=== PATIENT | female | born 1985 | race Caucasian/White ===

== ENCOUNTER → 2020-08-26 15:10 | Outpatient (CLI) | payer OTHER, MEDICAID, SELFPAY ==
--- NOTE | ~2020-08-26 | US_ITS ---
EXAMINATION: US OB transvaginal DATE: 08/26/2020 15:37 INDICATION: Subchorionic hematoma. First trimester. Spotting. TECHNIQUE: Real-time transvaginal pelvic ultrasound was performed. COMPARISON: None. FINDINGS: The uterus measures 9.8 x 6.0 x 6.3 cm. There is a fluid collection in the endometrial complex with m louis diameter of 1.3 cm, which may be a gestational sac with estimated gestational age of 5 weeks and 4 days +/- 4 days and estimated date of delivery of 04/24/2021. No yolk sac or pole is identifie d. The right ovary measures 3.8 x 2.3 x 1.7 cm. The left ovary measures 1.6 x 0.9 x 0.7 cm. There is no free fluid in the pelvis. IMPRESSION: 1. Fluid collection in the endometrial complex that may be a gestational sac. Spontaneous a nd ectopic are not excluded. Serial beta-hCGs are recommended. Reviewed, dictated and finalized at location A. ING MACHINE OPERATOR IMPRESSION: 1. Fluid collection in the endometrial complex that may be a gestational sac. Spontaneous and ectopic are not excluded. Serial beta-hCGs a re recommended.
== END ==
PROVIDERS: Visit Provider Obstetrics & Gynecology Gynecology
DX: O26.851 Spotting complicating pregnancy, first trimester (principal); Z3A.00 Weeks of gestation of pregnancy not specified
CPT/HCPCS: 76817

== ENCOUNTER 2020-10-06 10:39 | Outpatient (RCR) | payer OTHER, MEDICAID, SELFPAY ==
[2020-08-30] MEDS: RHO(D) IMMUNE GLOBULIN 300 MCG SYRINGE IM (08:40)
[2020-09-09 08:25] LABS: Beta HCG Quantitative 178.68 mIU/ML
[2020-09-23 08:55] LABS: Beta HCG Quantitative 8.37 mIU/ML
[2020-10-06 11:52] LABS: Beta HCG Quantitative < 2.39 mIU/ML
== END 2020-11-26 23:59 | disposition home or self-care (01) ==
LOC: ANHLAB 10:39
PROVIDERS: PCP Family Medicine; Visit Provider Obstetrics & Gynecology Gynecology
DX: Z29.13 Encounter for prophylactic Rho(D) immune globulin (principal); O36.0990 Maternal care for other rhesus isoimmunization, unspecified trimester, not applicable or unspecified; O02.1 Missed abortion; Z3A.00 Weeks of gestation of pregnancy not specified
CPT/HCPCS: 36415; 84702; 85461; 90384; 96372; J2790

== ENCOUNTER 2021-01-03 08:07 | Outpatient (RCR) | payer OTHER, MEDICAID, SELFPAY | END 2021-04-01 23:59 | disposition home or self-care (01) | LOC: ANHLAB 08:07 | PROVIDERS: PCP Family Medicine; Visit Provider Obstetrics & Gynecology Gynecology | DX: O26.21 Pregnancy care for patient with recurrent pregnancy loss, first trimester (principal); Z3A.00 Weeks of gestation of pregnancy not specified | CPT/HCPCS: 36415; 84702 ==

== ENCOUNTER → 2021-01-15 13:42 | Outpatient (CLI) | payer OTHER, MEDICAID, SELFPAY ==
--- NOTE | ~2021-01-15 | US_ITS ---
EXAMINATION: US OB transvaginal EXAM DATE: 01/15/2021 14:01 INDICATION: , history of subarachnoid bleed. 1st trimester. TECHNIQUE: Pelvic obstetrical transvaginal sonogram was performed by a technologist. [facility] grayscale and Doppler images available for interpretation. There are no earlier studies of this gestation for comparison. FINDINGS: Uterus measures 10.1 x 6.3 x 6.9 cm. There is intrauterine gestation sac. pole with heart rate confirmed at 130 beats per minute. The 5 mm crown-rump length corresponds to estimated g estational age by ultrasound of 6 weeks 1 day, estimated date of confinement 09/09/2021. Yolk sac is identified. There is no sonographic evidence of subchorionic hemorrhage. Ovaries are morphologica lly normal, the right side likely has the corpus luteal cyst. IMPRESSION: Early live intrauterine gestation, age by CRL 6 weeks 1 day. Reviewed, dictated and finalized at location A.
== END ==
PROVIDERS: Visit Provider Obstetrics & Gynecology Gynecology
DX: O26.21 Pregnancy care for patient with recurrent pregnancy loss, first trimester (principal); Z3A.01 Less than 8 weeks gestation of pregnancy
CPT/HCPCS: 76817

== ENCOUNTER 2021-02-26 12:16 | Outpatient (CLI) | payer OTHER, MEDICAID, SELFPAY ==
[2021-02-26 13:05] LABS: Basophils Percent Auto 0.2 % (0.2-1.2); Eosinophils Absolute Auto 0.1 K/mm3 (0-0.3); Eosinophils Percent Auto 1.6 % (0-4.4); Hematocrit 36.5 % (37.0-47.0); Hemoglobin 12.2 g/dL (12.0-15.0); Immature Granulocyte Absolute 0.05 K/mm3 (0.00-0.031); Immature Granulocyte Percent A 0.6 % (0-0.5); Lymphocytes Absolute Auto 1.92 K/mm3 (0.9-3.2); Lymphocytes Percent Auto 21.7 % (18.3-44.2); Mean Corpuscular HGB Conc 33.4 g/dl (32-36); Mean Corpuscular Hemoglobin 29.5 pg (26-34); Mean Corpuscular Volume 88.2 fl (80-100); Mean Platelet Volume 9.4 fl (7.4-10.4); Monocytes Absolute Auto 0.7 K/mm3 (0.1-0.6); Monocytes Percent Auto 7.7 % (2.6-8.5); Neutrophils Percent Auto 68.2 % (45.5-73.1); Platelet Count Result 269 k/mm3 (150-375); Red Blood Count 4.14 M/mm3 (4.2-5.4); Red Cell Distribution Width 12.2 % (11.5-14.5); White Blood Count 8.8 K/mm3 (4.5-10.0)
[2021-02-26 13:28] LABS: Hemoglobin A1C 5.1 % (<5.7)
[2021-02-26 13:54] LABS: HIV 1/2 Ab P24 Ag Result Negative (Negative)
[2021-02-26 13:59] LABS: Vitamin D 25 Hydroxy 25.6 ng/mL
[2021-02-26 21:53] LABS: Rubella IgG Antibody 33.8 IU/ML
[2021-02-26 21:56] LABS: Hepatitis B Surface Antigen 0.07 S/C; Hepatitis B Surface Antigen Negative (Negative)
[2021-02-27 08:30] LABS: Rapid Plasma Reagin Non-Reactive (NonReactive)
== END 2021-02-26 12:17 | disposition home or self-care (01) ==
PROVIDERS: PCP Family Medicine; Visit Provider Obstetrics & Gynecology Gynecology
DX: O09.529 Supervision of elderly multigravida, unspecified trimester (principal); Z3A.00 Weeks of gestation of pregnancy not specified
CPT/HCPCS: 36415; 82306; 83036; 85025; 86592; 86703; 86762; 86850; 87340; G0432

== ENCOUNTER 2021-03-31 09:10 | Outpatient (CLI) | payer OTHER, MEDICAID, SELFPAY ==
[2021-03-31 09:31] LABS: Collection Time Urine 24 HOURS
[2021-03-31 09:47] LABS: Estimated Glomerular Filt Rate > 60
[2021-03-31 10:30] LABS: Total Volume 24 Hour Urine 1300 ml
[2021-03-31 10:39] LABS: Creatinine Urine 99.6 mg/dL; Patient Weight 185 Lbs; Total Protein Urine 24 Hr 156 mg/24hr (28-141); Total Protein Urine Random 12 mg/dL
[2021-03-31 11:01] LABS: Creatinine Clearance Urine 166.9 ml/min (75-125)
== END 2021-03-31 09:11 | disposition home or self-care (01) ==
PROVIDERS: PCP Family Medicine; Visit Provider Obstetrics & Gynecology Gynecology
DX: Z34.92 Encounter for supervision of normal pregnancy, unspecified, second trimester (principal); Z3A.00 Weeks of gestation of pregnancy not specified
CPT/HCPCS: 36415; 81050; 82565; 82575; 84156

== ENCOUNTER 2021-06-18 16:11 | Outpatient (CLI) | payer BC, MEDICAID, SELFPAY ==
[2021-06-18 17:54] LABS: Hematocrit 31.9 % (37.0-47.0); Hemoglobin 10.8 g/dL (12.0-15.0)
[2021-06-18 18:12] LABS: Glucose 1 Hour PP 50gm Dose 101 mg/dL
[2021-06-18 18:52] LABS: HIV 1/2 Ab P24 Ag Result Negative (Negative)
[2021-06-18 21:36] LABS: Vitamin D 25 Hydroxy 26.6 ng/mL
== END 2021-06-18 16:12 | disposition home or self-care (01) ==
LOC: ANHLAB 16:17
PROVIDERS: PCP Family Medicine; Visit Provider Obstetrics & Gynecology Gynecology
DX: Z34.93 Encounter for supervision of normal pregnancy, unspecified, third trimester (principal)
CPT/HCPCS: 36415; 82306; 82947; 85014; 85018; 86703; G0432

== ENCOUNTER 2021-06-21 08:00 | Outpatient (RCR) | payer BC, MEDICAID, SELFPAY ==
[2021-06-21] MEDS: RHO(D) IMMUNE GLOBULIN 300 MCG/2 ML SYRINGE IM (14:37)
== END 2021-09-17 23:59 | disposition home or self-care (01) ==
LOC: ANHLAB 08:00
PROVIDERS: PCP Family Medicine; Visit Provider Obstetrics & Gynecology Gynecology
DX: Z29.13 Encounter for prophylactic Rho(D) immune globulin (principal); O36.0190 Maternal care for anti-D [Rh] antibodies, unspecified trimester, not applicable or unspecified; Z3A.00 Weeks of gestation of pregnancy not specified
CPT/HCPCS: 36415; 85461; 90384; 96372; J2790

== ENCOUNTER 2021-08-03 11:23 | Outpatient (CLI) | payer BC, MEDICAID, SELFPAY ==
[2021-08-03 12:09] LABS: Basophils Percent Auto 0.3 % (0.2-1.2); Eosinophils Absolute Auto 0.1 K/mm3 (0-0.3); Hematocrit 33.1 % (37.0-47.0); Hemoglobin 11.4 g/dL (12.0-15.0); Immature Granulocyte Absolute 0.06 K/mm3 (0.00-0.031); Immature Granulocyte Percent A 0.6 % (0-0.5); Lymphocytes Absolute Auto 1.86 K/mm3 (0.9-3.2); Lymphocytes Percent Auto 17.4 % (18.3-44.2); Mean Corpuscular HGB Conc 34.4 g/dl (32-36); Mean Corpuscular Hemoglobin 31.6 pg (26-34); Mean Corpuscular Volume 91.7 fl (80-100); Monocytes Absolute Auto 0.8 K/mm3 (0.1-0.6); Neutrophils Absolute Auto 7.9 K/mm3 (1.3-6.7); Neutrophils Percent Auto 73.7 % (45.5-73.1); Platelet Count Result 195 k/mm3 (150-375); Red Blood Count 3.61 M/mm3 (4.2-5.4); Red Cell Distribution Width 13.4 % (11.5-14.5); White Blood Count 10.7 K/mm3 (4.5-10.0)
[2021-08-03 13:15] LABS: Alanine Aminotransferase 12 U/L (4-35); Albumin Level 3.7 g/dL (3.5-5.1); Alkaline Phosphatase 131 U/L (38-126); Anion Gap 7 mmol/L (8-16); Aspartate Amino Transferase 18 U/L (14-36); Bilirubin,Total 0.5 mg/dL (0.2-1.3); Blood Urea Nitrogen 8 mg/dL (7-17); Calcium 8.6 mg/dL (8.4-10.2); Carbon Dioxide 20 mmol/L (22-30); Chloride 106 mmol/L (98-107); Estimated Glomerular Filt Rate > 60; Glucose 97 mg/dL (65-110); Lactate Dehydrogenase 411 U/L (313-618); Potassium 3.7 mmol/L (3.4-5.0); Sodium 133 mmol/L (137-145); Uric Acid 3.8 mg/dL (2.5-7.5)
== END 2021-08-03 11:24 | disposition home or self-care (01) ==
PROVIDERS: PCP Family Medicine; Visit Provider Obstetrics & Gynecology Gynecology
DX: Z34.93 Encounter for supervision of normal pregnancy, unspecified, third trimester (principal); Z3A.00 Weeks of gestation of pregnancy not specified
CPT/HCPCS: 36415; 80053; 83615; 84550; 85025

== ENCOUNTER 2021-08-06 13:33 | Outpatient (CLI) | payer BC, MEDICAID, SELFPAY ==
[2021-08-06] VITALS (10 sets, daily range): BP systolic 130–143; BP diastolic 71–83; PULSE 75–94; BMI 34.0
[2021-08-06 14:42] LABS: Basophils Percent Auto 0.2 % (0.2-1.2); Eosinophils Absolute Auto 0.1 K/mm3 (0-0.3); Eosinophils Percent Auto 0.9 % (0-4.4); Hematocrit 33.6 % (37.0-47.0); Hemoglobin 11.3 g/dL (12.0-15.0); Immature Granulocyte Absolute 0.05 K/mm3 (0.00-0.031); Immature Granulocyte Percent A 0.5 % (0-0.5); Lymphocytes Absolute Auto 1.85 K/mm3 (0.9-3.2); Lymphocytes Percent Auto 17.4 % (18.3-44.2); Mean Corpuscular HGB Conc 33.6 g/dl (32-36); Mean Corpuscular Hemoglobin 31.5 pg (26-34); Mean Corpuscular Volume 93.6 fl (80-100); Monocytes Absolute Auto 0.8 K/mm3 (0.1-0.6); Monocytes Percent Auto 7.9 % (2.6-8.5); Neutrophils Absolute Auto 7.8 K/mm3 (1.3-6.7); Neutrophils Percent Auto 73.1 % (45.5-73.1); Platelet Count Result 181 k/mm3 (150-375); Red Blood Count 3.59 M/mm3 (4.2-5.4); Red Cell Distribution Width 13.5 % (11.5-14.5); White Blood Count 10.6 K/mm3 (4.5-10.0)
[2021-08-06 14:53] LABS: Alanine Aminotransferase 12 U/L (4-35); Albumin Level 3.5 g/dL (3.5-5.1); Alkaline Phosphatase 136 U/L (38-126); Anion Gap 8 mmol/L (8-16); Aspartate Amino Transferase 19 U/L (14-36); Bilirubin,Total 0.7 mg/dL (0.2-1.3); Blood Urea Nitrogen 7 mg/dL (7-17); Calcium 8.8 mg/dL (8.4-10.2); Carbon Dioxide 22 mmol/L (22-30); Chloride 105 mmol/L (98-107); Estimated Glomerular Filt Rate > 60; Glucose 94 mg/dL (65-110); Potassium 3.6 mmol/L (3.4-5.0); Sodium 135 mmol/L (137-145); Uric Acid 4.5 mg/dL (2.5-7.5)
[2021-08-06 14:58] LABS: Add Urine Microscopic? YES; Appearance Urine Cloudy (Clear); Bilirubin Urine Negative (Negative); Blood Urine Negative (Negative); Color Urine Yellow (Yellow); Glucose Urine UA Negative (Negative); Ketones Urine Negative (Negative); Leukocyte Esterase Ur Trace LEU/UL (Negative); Mucus Urine Rare /lpf; Nitrate Urine Negative (Negative); Protein Urine Negative (Negative); Specific Grav Ur 1.013 (1.001-1.035); Squamous Epithelial Cell Urine Few /hpf (Few); Urobilinogen Urine Negative mg/dL (<2.0); WBC Urine 0-3 /hpf
[2021-08-06 15:07] LABS: Creatinine Urine 78.7 mg/dL; Total Protein Urine Random 10 mg/dL; Ur Ttl Prot Creatinine Ratio 0.13 mg/mg (0-0.20)
--- NOTE | 2021-08-06 15:32 | PC.NURSE ---
Dr. Benson informed of lab results, BP's, reactive NST. Order received for discharge. To encourage pt to do more resting at home.
== END 2021-08-06 15:51 | disposition home or self-care (01) ==
LOC: ANHOBOP 13:40 → ANHOBPP 13:41
PROVIDERS: PCP Family Medicine; Visit Provider Obstetrics & Gynecology Gynecology
DX: O13.9 Gestational [pregnancy-induced] hypertension without significant proteinuria, unspecified trimester (principal); Z3A.00 Weeks of gestation of pregnancy not specified
CPT/HCPCS: 36415; 59025; 80053; 81001; 82570; 84156; 84550; 85025; 99199

== ENCOUNTER 2021-08-07 15:00 | Outpatient (NON) | payer BC, MEDICAID, SELFPAY ==
[2021-08-07 15:15] VITALS: BMI 34.0
[2021-08-07 15:45] LABS: Total Volume 24 Hour Urine 1100 ml
[2021-08-07 15:59] LABS: Total Protein Urine 24 Hr 154 mg/24hr (28-141); Total Protein Urine Random 14 mg/dL
[2021-08-07 16:00] LABS: Creatinine 24 Hour Urine 1.3 gm/24 (0.8-1.8); Creatinine Urine 122.9 mg/dL
== END 2021-08-07 15:01 | disposition home or self-care (01) ==
LOC: ANHOBOP 15:11
PROVIDERS: PCP Family Medicine; Visit Provider Obstetrics & Gynecology Gynecology
DX: O13.9 Gestational [pregnancy-induced] hypertension without significant proteinuria, unspecified trimester (principal); Z3A.00 Weeks of gestation of pregnancy not specified
CPT/HCPCS: 81050; 82570; 84156

== ENCOUNTER → 2021-08-10 10:32 | Outpatient (CLI) | payer BC, MEDICAID, SELFPAY ==
--- NOTE | ~2021-08-10 | US_ITS ---
EXAMINATION: US OB BPP wo non-stress DATE: 08/10/2021 11:28 INDICATION: -induced hypertension, third trimester TECHNIQUE: Real-time pelvic ultrasound was performed. The interpreting radiologist was not present fo r the study. COMPARISON: None. FINDINGS: There is a single living fetus in vertex presentation. The placenta is fundal. heart rate is 12 4 beats per minute (bpm). The amniotic fluid index is 10.5 cm which is normal. Biophysical profile performed by the technologist: breathing (30 sec sustained breathing in 30 minutes): 2 out of 2 movement (3 gross body movements in 30 minutes): 2 out of 2 tone (one episode of qbdcbxg-alfjerywo-ymrimgs limb movement): 2 out of 2 Amniotic fluid pocket (2 cm): 2 out of 2 Total score: 8 out of 8 IMPRESSION: 1. Single living fetus in vertex presentation. 2. Biophysical profile 8 out of 8. 3. Normal amniotic fluid index. Reviewed, dictated and finalized at location B.
== END ==
PROVIDERS: Visit Provider Obstetrics & Gynecology Gynecology
DX: O13.3 Gestational [pregnancy-induced] hypertension without significant proteinuria, third trimester (principal); Z3A.35 35 weeks gestation of pregnancy
CPT/HCPCS: 76819

== ENCOUNTER 2021-08-13 16:44 | Inpatient (IN) | payer BC, MEDICAID, SELFPAY ==
[2021-08-13] VITALS (58 sets, daily range): BP systolic 126–180; BP diastolic 68–94; PULSE 75–110; RESP 18; TEMP 37.1–37.4; O2SAT 91–100; BMI 34.7
[2021-08-13 17:33] LABS: Basophils Percent Auto 0.2 % (0.2-1.2); Eosinophils Absolute Auto 0.1 K/mm3 (0-0.3); Eosinophils Percent Auto 1.2 % (0-4.4); Hematocrit 33.3 % (37.0-47.0); Immature Granulocyte Absolute 0.06 K/mm3 (0.00-0.031); Immature Granulocyte Percent A 0.6 % (0-0.5); Lymphocytes Percent Auto 18.1 % (18.3-44.2); Mean Corpuscular Hemoglobin 30.9 pg (26-34); Mean Corpuscular Volume 93.5 fl (80-100); Monocytes Absolute Auto 0.9 K/mm3 (0.1-0.6); Monocytes Percent Auto 8.3 % (2.6-8.5); Neutrophils Absolute Auto 7.5 K/mm3 (1.3-6.7); Neutrophils Percent Auto 71.6 % (45.5-73.1); Platelet Count Result 209 k/mm3 (150-375); Red Blood Count 3.56 M/mm3 (4.2-5.4); Red Cell Distribution Width 13.7 % (11.5-14.5); White Blood Count 10.5 K/mm3 (4.5-10.0)
[2021-08-13] MEDS: LACTATED RINGERS 1,000 ML 125 ML IV CONT ×2 (17:41→21:20)
[2021-08-13] MEDS: ceFAZolin 2 GM/D5W 50 ML 2 GM/50 ML BAG IVPB (17:42)
[2021-08-13 17:47] LABS: Alanine Aminotransferase 13 U/L (4-35); Albumin Level 3.7 g/dL (3.5-5.1); Alkaline Phosphatase 153 U/L (38-126); Anion Gap 7 mmol/L (8-16); Aspartate Amino Transferase 22 U/L (14-36); Bilirubin,Total 0.6 mg/dL (0.2-1.3); Blood Urea Nitrogen 7 mg/dL (7-17); Calcium 9.1 mg/dL (8.4-10.2); Carbon Dioxide 21 mmol/L (22-30); Chloride 107 mmol/L (98-107); Estimated Glomerular Filt Rate > 60; Glucose 80 mg/dL (65-110); Sodium 135 mmol/L (137-145)
--- NOTE | 2021-08-13 17:50 | LDADM ---
This patient, Sherine Ruiz, was admitted to Labor/Delivery/Recovery 106 on 08/13/21 at 16:44. Plans for labor, pain management and were discussed with patient. Patient/family oriented to hospital policies and general routines including ID bracelet, bed and alarms, visiting hours, pain management, procedures, bathroom and other care routines, personal items, smoking policy, room service/diet and guest tray routines, infant security routines, and visiting hours. Patient/Family are encouraged to report perceived risks to care and to ask questions if they do not understand what they are told or what they should do. See OBIX for further documentation.
[2021-08-13 19:02] LABS: Creatinine Urine 45.8 mg/dL; Total Protein Urine Random 12 mg/dL; Ur Ttl Prot Creatinine Ratio 0.26 mg/mg (0-0.20)
[2021-08-13] MEDS: LABETALOL HCL 100 MG TABLET 200 MG PO ×2 (19:15→23:43)
[2021-08-13 20:11] LABS: Uric Acid 4.4 mg/dL (2.5-7.5)
--- NOTE | 2021-08-13 20:20 | WPDANESEPPF ---
Anes - Initial Pre Proc Eval Procedure: labor epidural Date/Time: 08/13/21 20:20 Surgeon: Michoacano Escobar MD Pre Op Diagnosis: labor pain Pre Op Diagnosis: induction of labor Patient Data Age: 36 Gender: F Height: 1.6 m Weight: 89 kg Last Vital Signs Temp 37.2 C 08/13/21 18:47 Pulse 88 08/13/21 20:16 Resp 18 08/13/21 18:47 BP 154/79 H 08/13/21 20:16 Pulse Ox 99 08/13/21 19:15 Allergies Allergy/AdvReac Type Severity Reaction Status Date / Time codeine Allergy Unknown Rash Verified 08/20/19 13:39 erythromycin base Allergy Unknown Rash Verified 08/20/19 13:39 Macrolide Antibiotics Allergy Unknown Rash Verified 08/20/19 13:39 morphine Allergy Unknown Hives Verified 08/20/19 13:39 Penicillins Allergy Unknown Rash Verified 08/20/19 13:39 Home Medications Medication Instructions Recorded Confirmed Type PNV cmb#95-ferrous fumarate-FA 1 tablet PO DAILY 08/11/19 08/13/21 History [] nifedipine [Procardia XL] 30 mg PO DAILY 08/11/19 08/13/21 History labetalol 400 mg PO TID 08/12/21 08/13/21 History acetaminophen [Tylenol Extra 1,000 mg PO Q6H PRN 08/13/21 08/13/21 History Strength] ergocalciferol (vitamin D2) 50,000 unit PO WEEKLY 08/13/21 08/13/21 History Laboratory Tests 08/13/21 08/13/21 08/13/21 17:25 17:25 17:25 WBC 10.5 K/mm3 H K/mm3 (4.5-10.0) RBC 3.56 M/mm3 L M/mm3 (4.2-5.4) Hgb 11.0 g/dL L g/dL (12.0-15.0) Hct 33.3 % L % (37.0-47.0) MCV 93.5 fl fl (80-100) MCH 30.9 pg pg (26-34) MCHC 33.0 g/dl g/dl (32-36) RDW 13.7 % % (11.5-14.5) Plt Count 209 k/mm3 k/mm3 (150-375) MPV 10.0 fl fl (7.4-10.4) Immature Gran % (Auto) 0.6 % H % (0-0.5) Neut % (Auto) 71.6 % % (45.5-73.1) Lymph % (Auto) 18.1 % L % (18.3-44.2) Bertie % (Auto) 8.3 % % (2.6-8.5) Eos % (Auto) 1.2 % % (0-4.4) Baso % (Auto) 0.2 % % (0.2-1.2) Lymph # (Auto) 1.90 K/mm3 K/mm3 (0.9-3.2) Bertie # (Auto) 0.9 K/mm3 H K/mm3 (0.1-0.6) Eos # (Auto) 0.1 K/mm3 K/mm3 (0-0.3) Baso # (Auto) 0.0 K/mm3 K/mm3 (0.0-0.1) Abs Immat Gran (auto) 0.06 K/mm3 H K/mm3 (0.00-0.031) Absolute Neuts (auto) 7.5 K/mm3 H K/mm3 (1.3-6.7) Absolute Nucleated RBC 0.0 K/mm3 K/mm3 (0.0-0.012) Nucleated RBC % 0.0 % % (0.0-0.2) Sodium Potassium Chloride Carbon Dioxide Anion Gap BUN Creatinine Estim Creat Clear Calc Estimated GFR Glucose Uric Acid 4.4 mg/dL mg/dL (2.5-7.5) Calcium Total Bilirubin AST ALT Alkaline Phosphatase Total Protein Albumin U Random Total Protein Urine Creatinine Protein/Creat Ratio 2 RPR Pending Blood Type Antibody Screen Antibody Identification Antigen Identification GAMALIEL, IgG Interpret GAMALIEL, Poly Interpret GAMALIEL, Complement Interp 08/13/21 08/13/21 08/13/21 17:25 17:25 18:46 WBC RBC Hgb Hct MCV MCH MCHC RDW Plt Count MPV Immature Gran % (Auto) Neut % (Auto) Lymph % (Auto) Bertie % (Auto) Eos % (Auto) Baso % (Auto) Lymph # (Auto) Bertie # (Auto) Eos # (Auto) Baso # (Auto) Abs Immat Gran (auto) Absolute Neuts (auto) Absolute Nucleated RBC Nucleated RBC % Sodium 135 mmol/L L mmol/L (137-145) Potassium
--- NOTE | 2021-08-13 22:13 | WPDOBADMIT ---
Obstetrics - Admit Note Admission Note: record reviewed. No pertinent additions to the history and/or any subsequent changes in the physical findings that are not consistent with the expected course of the were found. Patient seen in office by Dr Benson. Elevated BPs 160/100 with Labetalol 400mg tid and Procardia 30 xl. Patient noncompliant with follow up and bedrest. Decision made to admit for IOL started on Pitocin. Cervix 5-6/50/ -2 AROM blood tinged fluid vertex. . Additions to the history and/or subsequent changes in the physical findings follow. None.
--- NOTE | 2021-08-13 23:19 | P.PCNOB_ITS ---
OB - Delivery Note Procedure Delivery date: 08/13/21 Procedure: events: Labor Induction Intrapartal events: None Induction method: AROM and per pitocin protocol Delivery monitor: external FHT and external uterine Route of delivery: Laceration Description: None Specimen: Yes Quantitative Blood Loss (ml): 370 Anesthesia type: Epidural Disposition: floor [place] Baby Date of : 08/13/21 Time of : 22:59 Weeks of gestation at delivery: 36 gender: Female Weight (pounds): 7 Weight (ounces): 3 presentation: vertex position: Left Occiput Anterior cord vessel description: 3 Vessels, Nuchal Cord (x2) and Tight score one minute: 7 score five minutes: 9
[2021-08-13] MEDS: OXYTOCIN 30 UNITS/NS 500 ML 30 UNITS/500 ML BAG 125 UNITS IV CONT (23:32)
[2021-08-14] VITALS (14 sets, daily range): BP systolic 143–167; BP diastolic 53–90; PULSE 74–89; RESP 16–18; TEMP 36.6–37.1; O2SAT 97–99
[2021-08-14] MEDS: IBUPROFEN 600 MG TABLET PO ×3 (00:50→18:24)
[2021-08-14] MEDS: BENZOCAINE 20% AER SPR (*SP) 56 GM CAN 1 SPRAY TOPICAL (00:50)
[2021-08-14] MEDS: WITCH HAZEL 40 PADS 1 PAD TOPICAL (00:50)
--- NOTE | 2021-08-14 01:22 | OBPPTRN ---
Patient transferred to post room # 291 via wheelchair. Support person present. Oriented to unit, room, information board, rooming in, admission packet and security measures. Patient verbalizes understanding.
[2021-08-14 04:56] LABS: Hematocrit 30.2 % (37.0-47.0); Hemoglobin 9.6 g/dL (12.0-15.0)
--- NOTE | 2021-08-14 08:30 | PC.NURSE ---
PT introductions made and plan of care discussed per post , pain management, breast bottle feeding, daily care activities. PT received such instructions this shift per one to one discussion, mom baby care guide and demonstration. PT sole recipient of such instructions and no barriers to learning identified at this time. PT verbalized understanding of such care.
[2021-08-14 09:08] LABS: Rapid Plasma Reagin Non-Reactive (NonReactive)
[2021-08-14] MEDS: LABETALOL HCL 100 MG TABLET 200 MG PO ×2 (09:50→21:25)
[2021-08-14] MEDS: MULTIVIT/MIN/PREN/FOL AC/IRON TABLET 1 TAB PO (09:50)
[2021-08-14] MEDS: ACETAMINOPHEN 325 MG TABLET 650 MG PO ×2 (09:51→18:25)
[2021-08-14] MEDS: POLYSACCHARIDE IRON COMPLEX 150 MG CAPSULE PO ×2 (09:52→18:25)
[2021-08-14] MEDS: DOCUSATE SODIUM 100 MG CAPSULE PO ×2 (09:52→18:24)
--- NOTE | 2021-08-14 11:00 | PC.NURSE ---
Consult with pt., mother reports this is her third early baby. Mother pumped and bottle fed with last two, she states this is sleepy and has bottle fed. Suggested mother attempt to breast each feeding for a few minutes. Breast pump provided due to ineffective feedng. Instructions given on breast pump care and usage, pumping schedule, nipple care, and collection and storage of breast milk. Encouraged pflg-op-quez, breast massage and manual expression to stimulate supply. Assessed patient for correct flange size, placement and draw. Patient verbalizes and demonstrates understanding of instructions.
[2021-08-15] MEDS: MULTIVIT/MIN/PREN/FOL AC/IRON TABLET 1 TAB PO (08:21)
[2021-08-15] MEDS: POLYSACCHARIDE IRON COMPLEX 150 MG CAPSULE PO (08:21)
[2021-08-15] MEDS: DOCUSATE SODIUM 100 MG CAPSULE PO (08:21)
[2021-08-15] MEDS: IBUPROFEN 600 MG TABLET PO (08:23)
[2021-08-15 08:24] VITALS: PULSE 80
[2021-08-15] MEDS: LABETALOL HCL 100 MG TABLET 200 MG PO (08:24)
[2021-08-15 08:30] VITALS: BP 150/90; PULSE 100; RESP 18; TEMP 36.8; O2SAT 100
--- NOTE | 2021-08-15 08:30 | PC.NURSE ---
Pt introductions made and plan of care discussed per post , breast feeding and supplementing, daily care activities and pending discharge to home. PT verbalized understanding of such care. PT received such instructions this shift with her spouse per one to one to discussion, mom baby care guide and demonstrations. No barriers of learning identified.
--- NOTE | 2021-08-15 11:07 | P.PNOB_ITS ---
OB - PN: Subj Subjective Date/time seen: 08/15/21 11:07 Interval history: No PIH sx numbness of face improved Patient comments: no complaints and pain well controlled [place] baby status: doing well OB - PN: Obj Data Labs CBC & Chem 7: 08/14/21 03:59 08/13/21 17:25 OB - PN A/P Assessment and Plan (1) (normal spontaneous vaginal delivery): Code(s): O80 - Encounter for full-term uncomplicated delivery Status: Acute Assessment and Plan: DC home. Plans micronor until vasectomy (2) Pre-eclampsia: Code(s): O14.90 - Unspecified pre-eclampsia, unspecified trimester Status: Acute Assessment and Plan: BP's improving. Increase Labetalol to 200 mg TID. F/u 1 wk Time Spent With Patient Time: Total time spent is greater than 50% in coordination of care (as jami nolasco) at patient's floor/unit and/or counseling patient: Exam : Bimanual exam- vagina & uterus: other (Uterus firm, nt @U)
--- NOTE | 2021-08-15 13:00 | PC.NURSE ---
PT received discharge instructions per protocol and verbalized understanding of such instructions.
--- NOTE | 2021-08-15 13:59 | PC.NURSE ---
PT discharged to home ambulatory accompanied by both parents and taken to waiting car. Follow up appts confirmed
[2021-08-17 10:24] VITALS: BP 155/89; PULSE 91; RESP 20; TEMP 36.8; O2SAT 100
--- NOTE | 2021-08-30 23:45 | PM.OBDSVD ---
DS: Admitting Diagnosis Discharge Date 08/15/21 Admitting Diagnosis induction of Labor, chtn OB - DS: Summary OB Procedures : NST, PIH Mgmt and Ultrasound OB Procedures Intrapartum: Spontaneous Vag Delivery OB Procedures: : None Time Spent with Patient Time attestation: Total time spent providing and/or coordinating discharge services: DS: Data Data Completed and Pending Completed studies during hospitalization: Pending at discharge 08/13/21 23:02 Surgical [PTH] Routine Discharge Plan Discharge Attending physician on discharge: Yessi Benson Consulting providers: Aj Marshall Discharging Clinician: Yessi Benson Anticipated Discharge Date/Time: 08/15/21 11:09 Patient Disposition: Home, Self-Care Activity: may shower and pelvic rest Diet: regular Discharge Instructions: Education: Mom and Baby Guide Given to: Mother Follow-Up: Call your delivering provider's office for an appointment to be seen in: 1 Week [facility] follow-up [facility]. Appointment Date/Time: August 17, 2021 at 10:00 am What to expect at your follow-up visit: Blood Pressure Check Call [phone] if you are unable to keep your appointment time. BREAST CARE: * Wear a snug supportive bra. * For engorgement discomfort: Breast Feeding: * Apply warm moist washcloths * Express milk as needed to relieve engorgement * Wear loose clothing Bottle Feeding: * May apply ice packs * For sore nipples: * Identify correct latch-on * Apply warm moist washcloths before and after nursing * Air dry nipples after nursing * May apply Lansinoh cream to nipples PERINEAL CARE: * Until bleeding stops, use your koffi bottle after urinating * Change your pad frequently throughout the day * You may take sitz baths several times a day (fill your bathtub with warm water and soak for 20 minutes.) Do NOT bathe in the water * No tub baths until seen by your physician - You may shower ACTIVITY: * Rest as much as possible. * Do not exercise or lift anything heavier than your baby (such as laundry or other children.) * Avoid stairs or driving as much as possible. * Do not put anything into the vagina. No douching, tampons, or sexual activity until seen by physician. NOTIFY PHYSICIAN IF YOU HAVE ANY QUESTIONS OR IF ANY OF THE FOLLOWING SYMPTOMS OCCUR: * If your perineum becomes red, swollen, or more painful than what you have experienced in the hospital. * If your vaginal bleeding becomes foul smelling. * If your vaginal bleeding becomes more heavy than a period or if your bleeding changes from pink to bright red. However, you may pass an occasional walnut-sized clot once or twice for the first week . * If you experience a sharp, shooting pain in you calves. * If you discover a hard, reddened area on your breast or if you experience flu-like symptoms. * If you have a fever of 100.4 or greater DIET: * Eat regular, well-balanced meals. * Drink plenty of fluids daily. If , drink to thirst. Patient Instructions: Antibiotic Form Stand Alone Forms: General Discharge Information Follow-up/Referrals: Yessi Benson MD [Physician] - 1 Week (and 6 wk) Discharge Medications: New norethindrone (contraceptive) 0.35 mg tablet 0.35 mg PO DAILY Qty: 84 RF: 3 Continued acetaminophen [Tylenol Extra Strength] 500 mg Tablet 1,000 mg PO Q6H PRN (Reason: Headache) RF: 0 ergocalciferol (vitamin D2) 1,250 mcg (50,000 unit) capsule 50,000 unit PO WEEKLY RF: 0 PNV cmb#95-ferrous fumarate-FA [] 28 mg iron- 800 mcg Tablet 1 tablet PO DAILY RF: 0 Changed labetalol 200 mg Tablet 200 mg PO TID Qty: 0 RF: 0 Discontinued nifedipine [Procardia XL] 30 mg Tablet Extended Release 24hr
== END 2021-08-15 13:59 | disposition home or self-care (01) | DRG 807 ==
LOC: ANHOB2 08-15 11:11 → ANHLDR 08-17 13:22 → ANHOB2 08-17 13:22
PROVIDERS: Obstetrics & Gynecology; Admitting Provider Obstetrics & Gynecology Gynecology; Visit Provider Obstetrics & Gynecology Gynecology
DX: O13.4 Gestational [pregnancy-induced] hypertension without significant proteinuria, complicating childbirth (principal); Z37.0 Single live birth; Z3A.36 36 weeks gestation of pregnancy; O60.14X0 Preterm labor third trimester with preterm delivery third trimester, not applicable or unspecified; O36.8330 Maternal care for abnormalities of the fetal heart rate or rhythm, third trimester, not applicable or unspecified; O62.3 Precipitate labor; O69.1XX0 Labor and delivery complicated by cord around neck, with compression, not applicable or unspecified
CPT/HCPCS: 36415; 80053; 82570; 84156; 84550; 85014; 85018; 85025; 86592; 86850; 86880; 86900; 86901; 86902; 88307; A9270; J0690; J2590; J2795; J7120

== ENCOUNTER → 2021-12-18 15:11 | Outpatient (CLI) | payer BC, MEDICAID, SELFPAY ==
--- NOTE | ~2021-12-18 | US_ITS ---
EXAMINATION: US OB transvaginal DATE: 12/18/2021 15:41 INDICATION: care for patient with recurrent loss TECHNIQUE: Real-time pelvic transabdominal and transvaginal ultrasound was performed. COMPARISON: None. FINDINGS: The uterus measures 11.3 x 6.5 x 7.1 cm. There is an intrauterine fluid collection measuri ng with a small yolk sac measuring 8 mm. No visible pole is identified. A second 6 mm fluid col lection is seen at the left/inferior uterus. The right ovary is not visualized however no right adnex al abnormality is seen. The left ovary measures 1.2 x 1.0 x 2.3 cm. There is normal vascular flow in the left ovary. There is no free fluid in the pelvis. IMPRESSION: 1. Intrauterine gestational sac too early for dating. 2. Small fluid collection of unclear etiology which could reflect subchronic hemorrhage. Sonographic follow-up is recommended. Reviewed, dictated and finalized at location B. ENT CARE NURSING ASSISTANT IMPRESSION: 1. Intrauterine gestational sac too early for dating. 2. Small fluid collection of unclear etiology which could reflect subchronic he morrhage. Sonographic follow-up is recommended.
== END ==
PROVIDERS: Visit Provider Obstetrics & Gynecology Gynecology
DX: O26.21 Pregnancy care for patient with recurrent pregnancy loss, first trimester (principal); Z3A.00 Weeks of gestation of pregnancy not specified
CPT/HCPCS: 76817

== ENCOUNTER → 2021-12-24 15:44 | Outpatient (CLI) | payer BC, MEDICAID, SELFPAY ==
--- NOTE | ~2021-12-24 | US_ITS ---
EXAMINATION: US OB transvaginal DATE: 12/24/2021 16:08 INDICATION: Gestational dating. viability. TECHNIQUE: Real-time transvaginal ultrasound. FINDINGS: Ultrasound dated 12/18/2021 The uterus measures 9.3 x 6.3 x 7.1 cm. There is an intrauterine gestational sac, with pole dalila ntified. There is a small subchorionic hemorrhage measuring 6 x 5 x 3 mm. The crown rump length measu res 0.43 cm, which correlates with a estimated gestational age of 6 weeks 1 day. heart tones are identified measuring 126 BPM. IMPRESSION: 1. SL IUP with an EGA of 6 weeks, 1 days (EDC by current ultrasound of 08/18/2022). 2: Small subchorionic hemorrhage. Reviewed, dictated and finalized at location B. IMPRESSION: 1. SL IUP with an EGA of 6 weeks, 1 days (EDC by current ultrasound of 08/18/20 22). 2: Small subchorionic hemorrhage.
== END ==
PROVIDERS: Visit Provider Obstetrics & Gynecology Gynecology
DX: O46.91 Antepartum hemorrhage, unspecified, first trimester (principal); Z3A.01 Less than 8 weeks gestation of pregnancy
CPT/HCPCS: 76817

== ENCOUNTER → 2022-01-21 11:10 | Outpatient (CLI) | payer BC, MEDICAID, SELFPAY ==
--- NOTE | ~2022-01-21 | US_ITS ---
EXAMINATION: US OB limited EXAM DATE: 01/21/2022 11:29 INDICATION: Subchorionic hematoma . 1st trimester. TECHNIQUE: Pelvic obstetrical transabdominal sonogram was performed by a technologist. There are mu ltiple grayscale and Doppler images available for interpretation. Comparison is made to prior examina tion from 12/24/2021. FINDINGS: The uterus measures 13.9 x 6.7 x 7.1 cm. There is a pole identified with crown-rump l ength 2.3 cm corresponding to estimated gestational age 9 weeks 0 days. No heart tones were dalila ntified (these were confirmed on prior study), indicating interval demise. No subchorionic fabian swapnil. Yolk sac not identified. IMPRESSION: demise. Reviewed, dictated and finalized at location B. IMPRESSION: demise.
== END ==
PROVIDERS: Visit Provider Obstetrics & Gynecology Gynecology
DX: O36.8910 Maternal care for other specified fetal problems, first trimester, not applicable or unspecified (principal); Z3A.00 Weeks of gestation of pregnancy not specified; O02.1 Missed abortion
CPT/HCPCS: 76815

== ENCOUNTER 2022-01-22 00:59 | Day surgery (SDC) | payer BC, MEDICAID, SELFPAY ==
[2022-01-21 12:46] VITALS: BMI 31.5
--- NOTE | 2022-01-21 12:54 | PC.NURSE ---
Report to the Outpatient Waiting Room, entrance under the green pavilion located off [facility], at time 1200 on date 01/22/22. OR Time: 1400. - You and your visitor will be asked a series of questions to screen for COVID 19 for your protection. - A mask is required within the hospital. One visitor will be allowed to accompany the patient into the hospital. Patients visitor will be instructed to remain with patient at all times or leave the building. We will allow the visitor to come back to the postoperative area when patient is ready. Preoperative COVID Testing Requirements: No COVID Test needed if: (proof is required; if not received patient will have Rapid Test prior to entry) - Patient has received COVID Vaccine at least 14 days prior to procedure date or - Patient has positive COVID test result within last 90 days of surgery date. COVID Test needed if above criteria is not met Patients may have clear liquids (water, carbonated beverages, clear teas, apple juice) until 3 hours prior to surgery with a maximum of 20 ounces. - No food from midnight until time of surgery Take the following medications with a SIP of water the morning of surgery: PROCARDIA Medications to discontinue per physician: N/A Date to take last dose: N/A Please no make-up, nail thai, hairspray, perfume, deodorant, or body powder the day of surgery. No jewelry (including any body piercings) or valuables the day of surgery, leave them at home. Please take a shower or bath the night before, or the morning of, surgery with an antibacterial soap. Wear comfortable, loose fitting clothing. - Jewelry must be removed prior to entering the operating room. Rings and piercings that are not removed may be cut off. - The hospital will not accept responsibility for valuables. - Please leave all valuables, including medications, at home the day of surgery. If you are going home after surgery, a licensed dairy truck driver must drive you home. - NO public transportation without another adult. - We recommend that an adult stay with you for 24 hours following discharge. - We also recommend that you do not drive, make important decision, drink alcoholic beverages, or take any drugs that were not prescribed by your health care provider for at least 24 hours after your discharge time. Follow any additional instructions given to you from your surgeon. Telephone instructions given to MELVIN MUÑOZ and asked if any additional questions and then verbalized understanding. Patient advised to call surgeon office or pre surgery nurse liaison [phone] if any additional questions.
[2022-01-22 12:03] VITALS: BP 145/93; PULSE 84; RESP 16; TEMP 37.2; O2SAT 99
--- NOTE | 2022-01-22 12:22 | P.PNAN_ITS ---
Anes - Initial Pre Proc Eval Procedure: Operation Date: 01/22/22 14:00 Proposed Procedures p Suction Dilation and Curettage - Yessi Benson MD Date/Time: 01/22/22 12:22 Surgeon: Yessi Benson MD Pre Op Diagnosis: missed ab Patient Data Age: 36 Gender: F Height: 1.59 m Weight: 79.38 kg Allergies Allergy/AdvReac Type Severity Reaction Status Date / Time morphine Allergy Intermediate Hives Verified 01/22/22 12:44 erythromycin base AdvReac Mild Rash Verified 01/22/22 12:44 Macrolide Antibiotics AdvReac Mild Rash Verified 01/22/22 12:44 Penicillins AdvReac Mild Rash Verified 01/22/22 12:44 codeine AdvReac Unknown STOMACH Verified 01/22/22 12:44 ISSUES Home Medications Medication Instructions Recorded Confirmed Type nifedipine [Procardia XL] 30 mg PO DAILY 01/21/22 01/22/22 History Patient hx anesthesia problems: none Family hx anesthesia problems: none Results Review: All pre-operative results and documents have been reviewed as part of the pre-operative evaluation. [facility] Past Medical History Medical History (Updated 08/15/21 @ 11:08 by Yessi Benson MD) Gestational hypertension Obesity Pre-eclampsia Family History Family History Mother Patient's mother is in good health Sibling Patient's brother is in good health Father Family history of premature coronary heart disease, Onset Age: 50 Patient's father is Grandparent Family history of malignant neoplasm of breast, Onset Age: 50 Social History Social History Smoking status: Never smoker Second hand tobacco smoke exposure: No Alcohol intake: never Substance use: never Substance use type: does not use Living arrangements: with family Spiritual care concerns: No Anes - Eval Final PreProcedure Day of Procedure 01/22/22 12:22 Patient weight: obese Heart: regular rate and rhythm Lungs: clear to auscultation and normal air movement Airway: Mallampati scale class II Neurological: alert and oriented Last oral intake: >/= 8 hours ASA classification: II Emergent: no Anesthetic plan: proceed Anesthesia type and monitoring: general GIVS and standard monitoring Results Review: All pre-operative results and documents have been reviewed as part of the pre-operative evaluation. Informed Consent: The patient's anesthetic plan and its attendant risks and benefits were discussed with the patient/family/POA. Questions were solicited and answers provided to the satisfaction of the patient/family/POA.
[2022-01-22] MEDS: ACETAMINOPHEN 500 MG TABLET 1000 MG PO (12:46)
[2022-01-22] MEDS: LACTATED RINGERS 1,000 ML 30 ML IV CONT (12:50)
--- NOTE | 2022-01-22 13:07 | P.HP_ITS ---
History of Present Illness History of Present Illness Consent: Risks, benefits, and alternatives have been discussed and questions answered. Patient agrees to proceed with procedure. Chief complaint: missed ab Narrative: Sherine Ruiz is a 36 year old female With missed at 9 weeks. Patient had ultrasound on 01/21 revealing no heart tones in a 9 week gestation. Patient has had no bleeding and wishes to proceed with suction D&C. Risks of infection, bleeding, and perforation were reviewed. Patient voices understanding and agrees to proceed. 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 Resolved now History of depression (normal spontaneous vaginal delivery) x8 preeclampsia or gestational hypertension in all pregnancies Family History Family History Mother Patient's mother is in good health Sibling Patient's brother is in good health Father Family history of premature coronary heart disease, Onset Age: 50 Patient's father is Grandparent Family history of malignant neoplasm of breast, Onset Age: 50 Social History Social History Smoking status: Never smoker Second hand tobacco smoke exposure: No Alcohol intake: never Substance use: never Substance use type: does not use Living arrangements: with family Spiritual care concerns: No Meds Home Medications and Allergies Home Medications Medication Instructions Recorded Confirmed Type nifedipine [Procardia XL] 30 mg PO DAILY 01/21/22 01/22/22 History Allergies Allergy/AdvReac Type Severity Reaction Status Date / Time morphine Allergy Intermediate Hives Verified 01/22/22 12:44 erythromycin base AdvReac Mild Rash Verified 01/22/22 12:44 Macrolide Antibiotics AdvReac Mild Rash Verified 01/22/22 12:44 Penicillins AdvReac Mild Rash Verified 01/22/22 12:44 codeine AdvReac Unknown STOMACH Verified 01/22/22 12:44 ISSUES Exam Const: General: healthy appearing and alert Orientation/consciousness: patient oriented x3 Resp: Effort & Inspection: normal respiratory effort Auscultation: clear to auscultation bilaterally Cardio: Rate: regular rate Rhythm: regular rhythm GI: GI Palp: Yes Soft to palpation, No Tenderness to palpation present (GI) a nd No Palpable mass present : External Female Exam: normal external appearance Speculum Exam - Vagina: normal appearance of the vagina and normal vaginal discharge Speculum Exam - Cervix: normal appearance of the cervix Bimanual exam- vagina & uterus: uterine size normal and consistency normal Bimanual Exam- Adnexa, other: normal adnexae and No adnexal tenderness Neuro: General: patient oriented x3 Assessment and Plan Assessment and plan (1) Missed : Code(s): O02.1 - Missed Status: Acute Assessment and Plan: plan to proceed with suction D&C
--- NOTE | 2022-01-22 13:07 | WPDHPUPDATE1 ---
History and Physical Update Update Date/Time: 01/22/22 13:07 History and Physical has been reviewed, including an updated exam of the patient. There are NO changes in the patient's condition. Risks, benefits, and alternatives have been discussed and questions answered. Patient agrees to proceed with procedure.
--- NOTE | 2022-01-22 13:41 | P.OP_ITS ---
Procedure Note - Detailed Date of Procedure 01/22/22 Pre-op Diagnosis missed ab Post-op Diagnosis Same Procedure Performed suction D&C Surgeon Yessi Benson MD Anesthesia MAC and Local Findings uterus sounds to 12cm; moderate products of conception Description of Procedure the patient is taken to the operating room and placed under anesthesia in the dosal lithotomy position. She was prepped and draped in usual sterile fashion. [place] speculum was placed in the vagina and the cervix grasped on the anterior lip with a tenaculum. Cervix is injected in each quadrant with lidocaine. The uterus is sounded to 12cm. The cervix is serially dilated with Hegar to a 10. A 10mm curved suction curette is used to evacuate the uterus until there are no further products in the tubing. Sharp curette is then used and no further products are noted. One additional pass with the suction curette was performed and no additional products were noted. The uterus was resounded noted to be 10. Minimal bleeding is encountered. Patient was given Methergine . The patient is awakened from anesthesia and taken to recovery in stable condition. The sponge, needle, and instrument counts are correct per the OR staff. Estimated Blood Loss 100 ( Total products of conception and bleeding) Drains No Packing No Pathology Yes ( products of conception) Complications No immediate complications Condition Stable Disposition PACU
[2022-01-22 13:45] VITALS: BP 161/93; PULSE 75; RESP 16
[2022-01-22 14:15] VITALS: BP 176/86; PULSE 72; RESP 16
[2022-01-22] MEDS: RHO(D) IMMUNE GLOBULIN 300 MCG/2 ML SYRINGE IM (14:30)
[2022-01-22 14:45] VITALS: BP 163/80; PULSE 70; RESP 16
== END 2022-01-22 15:05 | disposition home or self-care (01) ==
PROVIDERS: PCP Family Medicine; Visit Provider Obstetrics & Gynecology Gynecology
PROC: (CPT 59820; principal; 2022-01-22 14:00)
DX: O02.1 Missed abortion (principal); F32.9 Major depressive disorder, single episode, unspecified; I51.7 Cardiomegaly
CPT/HCPCS: 59820; 36415; 85461; 88305; 90384; A9270; J2210; J2250; J2704; J2790; J3010; J7120

== ENCOUNTER 2022-02-24 15:04 | Outpatient (RCR) | payer BC, MEDICAID, SELFPAY ==
[2022-02-04 11:23] LABS: Beta HCG Quantitative 160.25 mIU/ML
[2022-02-13 08:27] LABS: Beta HCG Quantitative 21.27 mIU/ML
[2022-02-18 13:15] LABS: Beta HCG Quantitative 8.77 mIU/ML
[2022-02-24 16:04] LABS: Beta HCG Quantitative 3.45 mIU/ML
== END 2022-03-19 23:59 | disposition home or self-care (01) ==
LOC: ANHLAB 15:04
PROVIDERS: Visit Provider Obstetrics & Gynecology Gynecology
DX: R93.5 Abnormal findings on diagnostic imaging of other abdominal regions, including retroperitoneum (principal)
CPT/HCPCS: 36415; 84702

== ENCOUNTER 2022-05-20 09:37 | Outpatient (RCR) | payer BC, MEDICAID, SELFPAY ==
[2022-05-18 12:13] LABS: Beta HCG Quantitative 13.51 mIU/ML
[2022-05-20 10:56] LABS: Beta HCG Quantitative 4.53 mIU/ML
== END 2022-08-16 23:59 | disposition home or self-care (01) ==
LOC: ANHLAB 09:37
PROVIDERS: PCP Family Medicine; Visit Provider Obstetrics & Gynecology Gynecology
DX: O26.21 Pregnancy care for patient with recurrent pregnancy loss, first trimester (principal); Z3A.00 Weeks of gestation of pregnancy not specified
CPT/HCPCS: 36415; 84702

== ENCOUNTER 2022-10-05 13:30 | Outpatient (CLI) | payer BC, MEDICAID, SELFPAY ==
[2022-10-05 14:31] LABS: Beta HCG Quantitative < 2.39 mIU/ML
== END 2022-10-05 13:31 | disposition home or self-care (01) ==
LOC: ANHLAB 13:34
PROVIDERS: PCP Family Medicine; Visit Provider Obstetrics & Gynecology Gynecology
DX: O26.21 Pregnancy care for patient with recurrent pregnancy loss, first trimester (principal); Z3A.00 Weeks of gestation of pregnancy not specified
CPT/HCPCS: 36415; 84702

== ENCOUNTER 2022-11-03 12:46 | Outpatient (RCR) | payer BC, MEDICAID, SELFPAY ==
[2022-09-23 12:39] LABS: Beta HCG Quantitative 31.24 mIU/ML
[2022-09-25 12:24] LABS: Beta HCG Quantitative 33.92 mIU/ML
[2022-11-01 13:38] LABS: Beta HCG Quantitative 57.98 mIU/ML
[2022-11-03 13:47] LABS: Beta HCG Quantitative 165.44 mIU/ML
== END 2022-12-22 23:59 | disposition home or self-care (01) ==
LOC: ANHLAB 12:46
PROVIDERS: PCP Family Medicine; Visit Provider Obstetrics & Gynecology Gynecology
DX: O26.21 Pregnancy care for patient with recurrent pregnancy loss, first trimester (principal); Z3A.00 Weeks of gestation of pregnancy not specified
CPT/HCPCS: 36415; 84702

== ENCOUNTER 2022-11-10 09:56 | Outpatient (CLI) | payer BC, MEDICAID, SELFPAY | END 2022-11-10 09:57 | disposition home or self-care (01) | PROVIDERS: PCP Family Medicine; Visit Provider Obstetrics & Gynecology Gynecology | DX: O36.80X0 Pregnancy with inconclusive fetal viability, not applicable or unspecified (principal); Z3A.00 Weeks of gestation of pregnancy not specified | CPT/HCPCS: 36415; 84702 ==

== ENCOUNTER → 2022-11-15 10:09 | Outpatient (CLI) | payer BC, MEDICAID, SELFPAY ==
--- NOTE | ~2022-11-15 | US_ITS ---
Pelvic ultrasound. Clinical History: First trimester , evaluate for viability Technique: Realtime transabdominal and transvaginal scanning of the pelvis was performed. Color flow Doppler and Doppler spectral analysis were performed. Findings: The uterus is anteverted. Intrauterine gestational sac is present. Average sac diameter of 1.2 cm corresponds to an estimated gestational age of 5 weeks 2 days. Yolk sac present without visibl e pole. Subchorionic hemorrhage is present, measuring 2.1 x 0.9 x 3.0 cm. The right ovary measures 2.8 x 1.5 x 3.0 cm. No significant right ovarian or adnexal mass is seen. The left ovary measures 1.5 x 1.8 x 1.5 cm. No significant left ovarian or adnexal mass is seen. There is no evidence of free fluid in the cul de sac. Impression: Intrauterine gestation with estimated gestational age of 5 weeks 2 days. Yolk sac present without def inite pole, which could be commensurate with the early gestational age. Consider continued foll ow up with serial beta hCG, and repeat ultrasound as warranted. Moderate subchorionic hemorrhage. Reviewed, dictated and finalized at location . E CONSULTANT Impression: Intrauterine gestation with estimated gestational age of 5 weeks 2 days. Yolk s ac present without definite pole, which could be commensurate with the ea rly gestational age. Consider continued follow up with serial beta hCG, and rep eat ultrasound as warranted. Moderate subchorionic hemorrhage.
== END ==
PROVIDERS: PCP Family Medicine; Visit Provider Obstetrics & Gynecology Gynecology
DX: O36.80X0 Pregnancy with inconclusive fetal viability, not applicable or unspecified (principal); Z3A.01 Less than 8 weeks gestation of pregnancy
CPT/HCPCS: 76817

== ENCOUNTER 2022-11-16 14:57 | Outpatient (CLI) | payer BC, MEDICAID, SELFPAY | END 2022-11-16 14:58 | disposition home or self-care (01) | PROVIDERS: PCP Family Medicine; Visit Provider Obstetrics & Gynecology Gynecology | DX: O36.80X0 Pregnancy with inconclusive fetal viability, not applicable or unspecified (principal); Z3A.00 Weeks of gestation of pregnancy not specified | CPT/HCPCS: 36415; 84702 ==

== ENCOUNTER → 2022-11-25 10:10 | Outpatient (CLI) | payer BC, MEDICAID, SELFPAY ==
--- NOTE | ~2022-11-25 | US_ITS ---
EXAMINATION: US OB transvaginal DATE: 11/25/2022 10:51 INDICATION: First trimester dating TECHNIQUE: Real-time pelvic transabdominal and transvaginal ultrasound was performed. COMPARISON: 11/15/2022 FINDINGS: The uterus measures 11.3 x 6.2 x 7.3 cm. There is an intrauterine gestational sac. There i s a 1.3 x 2 x 0.8 cm hypoechoic area adjacent to the gestational sac. A yolk sac is identified. heart motion is identified measuring 142 beats per minute (bpm) by M-mode Doppler. The crown r ump length measures 12 mm, which correlates with an estimated gestational age of 7 weeks and 2 day(s) (+/-) 5 day(s). The left ovary is not visualized however no left adnexal abnormality is seen. The right ovary measure s 2.4 x 2.3 x 1.7 cm. There is normal vascular flow in the right ovary. There is no free fluid in the pelvis. IMPRESSION: 1. Live intrauterine with an estimated gestational age of 7 weeks and 2 day(s) (+/-) 5 day( s) and an estimated delivery date of 07/12/2023. 2. Subchorionic hematoma. Reviewed, dictated and finalized at location A. TING ENGINE OPERATOR IMPRESSION: 1. Live intrauterine with an estimated gestational age of 7 weeks and 2 day(s) (+/-) 5 day(s) and an estimated delivery date of 07/12/2023. 2. Subchorionic hematoma.
== END ==
PROVIDERS: PCP Family Medicine; Visit Provider Obstetrics & Gynecology Gynecology
DX: O36.80X0 Pregnancy with inconclusive fetal viability, not applicable or unspecified (principal); O36.8911 Maternal care for other specified fetal problems, first trimester, fetus 1; Z3A.01 Less than 8 weeks gestation of pregnancy
CPT/HCPCS: 76817

== ENCOUNTER 2022-12-03 10:59 | Outpatient (CLI) | payer BC, MEDICAID, SELFPAY | END 2022-12-03 11:00 | disposition home or self-care (01) | LOC: ANHLAB 11:02 | PROVIDERS: PCP Family Medicine; Visit Provider Obstetrics & Gynecology Gynecology | DX: Z32.01 Encounter for pregnancy test, result positive (principal) | CPT/HCPCS: 36415; 84702 ==

== ENCOUNTER → 2022-12-22 13:13 | Outpatient (CLI) | payer BC, MEDICAID, SELFPAY ==
--- NOTE | ~2022-12-22 | US_ITS ---
Pelvic ultrasound. Clinical History: First trimester , subchorionic hematoma COMPARISON: 11/25/2022 Technique: Realtime transabdominal and transvaginal scanning of the pelvis was performed. Color flow Doppler and Doppler spectral analysis were performed. Findings: The uterus is anteverted, and contains an intrauterine gestation. heart rate is 176 b pm. Small subchorionic hematoma is present, measuring 3.5 x 0.5 x 1.3 cm in extent. Neither ovary seen. No adnexal mass seen. There is no evidence of free fluid in the cul de sac. Impression: Small subchronic hematoma, as noted above. Given differences in imaging technique, subchorionic hemat sumit is probably essentially stable in size from prior exam. Live intrauterine gestation with heart rate of 176 bpm. Reviewed, dictated and finalized at location M. Impression: Small subchronic hematoma, as noted above. Given differences in imaging techniq ue, subchorionic hematoma is probably essentially stable in size from prior exa m. Live intrauterine gestation with heart rate of 176 bpm.
== END ==
PROVIDERS: PCP Family Medicine; Visit Provider Obstetrics & Gynecology Gynecology
DX: O36.8910 Maternal care for other specified fetal problems, first trimester, not applicable or unspecified (principal); Z3A.00 Weeks of gestation of pregnancy not specified
CPT/HCPCS: 76815

== ENCOUNTER 2023-01-10 14:29 | Outpatient (CLI) | payer BC, MEDICAID, SELFPAY ==
[2023-01-10 16:24] LABS: Basophils Percent Auto 0.2 % (0.2-1.2); Eosinophils Absolute Auto 0.2 K/mm3 (0-0.3); Eosinophils Percent Auto 1.9 % (0-4.4); Hematocrit 38.5 % (37.0-47.0); Hemoglobin 12.7 g/dL (12.0-15.0); Immature Granulocyte Absolute 0.03 K/mm3 (0.00-0.031); Immature Granulocyte Percent A 0.4 % (0-0.5); Lymphocytes Absolute Auto 1.87 K/mm3 (0.9-3.2); Lymphocytes Percent Auto 23.2 % (18.3-44.2); Mean Corpuscular Hemoglobin 29.3 pg (26-34); Mean Corpuscular Volume 88.9 fl (80-100); Mean Platelet Volume 9.8 fl (7.4-10.4); Monocytes Absolute Auto 0.7 K/mm3 (0.1-0.6); Monocytes Percent Auto 8.3 % (2.6-8.5); Neutrophils Absolute Auto 5.3 K/mm3 (1.3-6.7); Platelet Count Result 263 k/mm3 (150-375); Red Blood Count 4.33 M/mm3 (4.2-5.4); Red Cell Distribution Width 12.4 % (11.5-14.5); White Blood Count 8.1 K/mm3 (4.5-10.0)
[2023-01-10 17:15] LABS: HIV 1/2 Ab P24 Ag Result Negative (Negative)
[2023-01-10 18:06] LABS: Vitamin D 25 Hydroxy 24.8 ng/mL
[2023-01-10 18:17] LABS: Hepatitis B Surface Antigen Negative (Negative); Rubella IgG Antibody 27.3 IU/ML
[2023-01-10 18:33] LABS: Hepatitis C Virus Antibody Negative (Negative)
[2023-01-11 06:56] LABS: Rapid Plasma Reagin Non-Reactive (NonReactive)
== END 2023-01-10 14:30 | disposition home or self-care (01) ==
LOC: ANHLAB 14:32
PROVIDERS: PCP Family Medicine; Visit Provider Obstetrics & Gynecology Gynecology
DX: Z36.9 Encounter for antenatal screening, unspecified (principal); Z3A.00 Weeks of gestation of pregnancy not specified
CPT/HCPCS: 36415; 82306; 82728; 83036; 85025; 86592; 86703; 86762; 86803; 86850; 86900; 86901; 87340; G0432

== ENCOUNTER → 2023-01-20 10:09 | Outpatient (CLI) | payer BC, MEDICAID, SELFPAY ==
--- NOTE | ~2023-01-20 | US_ITS ---
US OB limited 01/20/2023 10:33 Indication: Follow-up subchorionic hematoma. Procedure: High-resolution Limited obstetrical ultrasound using transabdominal technique Comparison: Ultrasound dated 12/22/2022 Findings: There is slight irregularity to the posterior margin of the placental contour, likely aiden l variant. No definite subchorionic hematomas identified. There is a single living intrauterine pregn antonio with heart rate of 171 BPM. Uterus measures 17.4 x 9.5 x 13.2 cm. Amniotic fluid is subjec tively normal. Impression: 1: No definite residual subchorionic hematoma. 2: Single living intrauterine with heart rate of 171 BPM. Reviewed, dictated and finalized at location L. Impression: 1: No definite residual subchorionic hematoma. 2: Single living intrauterine with heart rate of 171 BPM.
== END ==
PROVIDERS: PCP Obstetrics & Gynecology Gynecology; Visit Provider Obstetrics & Gynecology Gynecology
DX: O36.8910 Maternal care for other specified fetal problems, first trimester, not applicable or unspecified (principal)
CPT/HCPCS: 76815

== ENCOUNTER 2023-01-31 11:53 | Outpatient (CLI) | payer BC, MEDICAID, SELFPAY ==
[2023-01-31 12:50] LABS: Alanine Aminotransferase 22 U/L (6-35); Albumin Level 4.2 g/dL (3.5-5.1); Alkaline Phosphatase 65 U/L (38-126); Anion Gap 3 mmol/L (8-16); Aspartate Amino Transferase 22 U/L (14-36); Bilirubin,Total 0.5 mg/dL (0.2-1.3); Blood Urea Nitrogen 7 mg/dL (7-17); Calcium 8.8 mg/dL (8.4-10.2); Carbon Dioxide 26 mmol/L (22-30); Chloride 106 mmol/L (98-107); Estimated Glomerular Filt Rate > 60; Glucose 95 mg/dL (65-110); Potassium 3.7 mmol/L (3.4-5.0); Sodium 135 mmol/L (137-145); Uric Acid 3.5 mg/dL (2.5-7.5)
[2023-01-31 13:06] LABS: Collection Time Urine 24 HOURS
[2023-01-31 13:20] LABS: Total Volume 24 Hour Urine 1350 ml
[2023-01-31 13:48] LABS: Creatinine Urine 91.8 mg/dL; Total Protein Urine 24 Hr 148 mg/24hr (28-141); Total Protein Urine Random 11 mg/dL
[2023-01-31 14:10] LABS: Patient Weight 177 Lbs
[2023-01-31 14:22] LABS: Creatinine Clearance Urine 203.4 ml/min (75-125)
== END 2023-01-31 11:54 | disposition home or self-care (01) ==
LOC: ANHLAB 11:55
PROVIDERS: PCP Obstetrics & Gynecology Gynecology; Visit Provider Obstetrics & Gynecology Gynecology
DX: Z34.92 Encounter for supervision of normal pregnancy, unspecified, second trimester (principal); Z3A.00 Weeks of gestation of pregnancy not specified
CPT/HCPCS: 36415; 80053; 81050; 82575; 84156; 84550

== ENCOUNTER 2023-02-18 09:20 | Outpatient (CLI) | payer BC, MEDICAID, SELFPAY ==
[2023-02-18 10:34] LABS: Estimated Glomerular Filt Rate > 60
== END 2023-02-18 09:21 | disposition home or self-care (01) ==
PROVIDERS: PCP Obstetrics & Gynecology Gynecology; Visit Provider Obstetrics & Gynecology Gynecology
DX: Z87.59 Personal history of other complications of pregnancy, childbirth and the puerperium (principal)
CPT/HCPCS: 36415; 82565

== ENCOUNTER 2023-02-19 08:12 | Outpatient (NON) | payer BC, MEDICAID, SELFPAY ==
[2023-02-19 09:26] LABS: Creatinine Urine 99.8 mg/dL
[2023-02-19 09:52] LABS: Creatinine 24 Hour Urine 1.2 gm/24 (0.8-1.8); Total Volume 24 Hour Urine 1250 ml
[2023-02-21 15:29] LABS: Total Volume 24 Hour Urine 1250 ml
[2023-02-21 18:58] LABS: Total Protein Urine 24 Hr 137 mg/24hr (28-141); Total Protein Urine Random 11 mg/dL
== END 2023-02-19 08:13 | disposition home or self-care (01) ==
LOC: ANHLAB 08:14
PROVIDERS: PCP Obstetrics & Gynecology Gynecology; Visit Provider Obstetrics & Gynecology Gynecology
DX: Z87.59 Personal history of other complications of pregnancy, childbirth and the puerperium (principal)
CPT/HCPCS: 81050; 82570; 84156

== ENCOUNTER 2023-04-21 10:06 | Outpatient (CLI) | payer BC, MEDICAID, SELFPAY ==
[2023-04-21 11:47] LABS: Hematocrit 36.1 % (37.0-47.0)
[2023-04-21 12:12] LABS: Alanine Aminotransferase 16 U/L (6-35); Albumin Level 3.7 g/dL (3.5-5.1); Alkaline Phosphatase 78 U/L (38-126); Anion Gap 3 mmol/L (8-16); Aspartate Amino Transferase 20 U/L (14-36); Bilirubin,Total 0.4 mg/dL (0.2-1.3); Blood Urea Nitrogen 9 mg/dL (7-17); Calcium 8.7 mg/dL (8.4-10.2); Carbon Dioxide 24 mmol/L (22-30); Chloride 104 mmol/L (98-107); Estimated Glomerular Filt Rate > 60; Glucose 140 mg/dL (65-110); Glucose 1 Hour PP 50gm Dose 140 mg/dL; Potassium 3.4 mmol/L (3.4-5.0); Sodium 131 mmol/L (137-145)
[2023-04-21 12:44] LABS: HIV 1/2 Ab P24 Ag Result Negative (Negative)
[2023-04-21 12:49] LABS: Vitamin D 25 Hydroxy 44.4 ng/mL
== END 2023-04-21 10:07 | disposition home or self-care (01) ==
PROVIDERS: PCP Obstetrics & Gynecology Gynecology; Visit Provider Advanced Practice Midwife
DX: Z36.9 Encounter for antenatal screening, unspecified (principal); Z3A.00 Weeks of gestation of pregnancy not specified
CPT/HCPCS: 36415; 80053; 82306; 82947; 85014; 85018; 85461; 86703; 86850; 86900; 86901; 90384; G0432; J2790

== ENCOUNTER 2023-04-21 11:05 | Outpatient (RCR) | payer BC, MEDICAID, SELFPAY ==
[2023-04-23] MEDS: RHO(D) IMMUNE GLOBULIN 300 MCG/2 ML SYRINGE IM (18:08)
== END 2023-07-20 23:59 | disposition home or self-care (01) ==
LOC: ANHLAB 11:05
PROVIDERS: PCP Obstetrics & Gynecology Gynecology; Visit Provider Obstetrics & Gynecology Gynecology
DX: Z36.9 Encounter for antenatal screening, unspecified (principal)
CPT/HCPCS: 90384; 96372; J2790

== ENCOUNTER 2023-04-25 07:01 | Outpatient (CLI) | payer BC, MEDICAID, SELFPAY ==
[2023-04-25 07:44] LABS: Glucose Fasting Gestational 107 mg/dL (>/=95)
[2023-04-25 09:14] LABS: Glucose 1 Hour Gest 148 mg/dL (>/=180)
[2023-04-25 10:10] LABS: Glucose 2 Hour Gest 130 mg/dL (>/= 155)
[2023-04-25 11:10] LABS: Glucose 3 Hour Gest 111 mg/dL (>/=140)
== END 2023-04-25 07:02 | disposition home or self-care (01) ==
LOC: ANHLAB 07:03
PROVIDERS: PCP Obstetrics & Gynecology Gynecology; Visit Provider Obstetrics & Gynecology Gynecology
DX: O99.810 Abnormal glucose complicating pregnancy (principal); Z3A.00 Weeks of gestation of pregnancy not specified
CPT/HCPCS: 36415; 82951; 82952

== ENCOUNTER 2023-05-17 15:35 | Outpatient (CLI) | payer BC, MEDICAID, SELFPAY ==
[2023-05-17 16:27] LABS: Basophils Percent Auto 0.3 % (0.2-1.2); Eosinophils Absolute Auto 0.3 K/mm3 (0-0.3); Eosinophils Percent Auto 2.9 % (0-4.4); Hematocrit 35.7 % (37.0-47.0); Immature Granulocyte Absolute 0.08 K/mm3 (0.00-0.031); Immature Granulocyte Percent A 0.7 % (0-0.5); Mean Corpuscular HGB Conc 33.6 g/dl (32-36); Mean Corpuscular Hemoglobin 30.8 pg (26-34); Mean Corpuscular Volume 91.8 fl (80-100); Mean Platelet Volume 10.4 fl (7.4-10.4); Monocytes Percent Auto 8.7 % (2.6-8.5); Neutrophils Absolute Auto 7.7 K/mm3 (1.3-6.7); Neutrophils Percent Auto 69.4 % (45.5-73.1); Platelet Count Result 205 k/mm3 (150-375); Red Blood Count 3.89 M/mm3 (4.2-5.4); Red Cell Distribution Width 14.1 % (11.5-14.5); White Blood Count 11.1 K/mm3 (4.5-10.0)
[2023-05-17 16:40] LABS: Alanine Aminotransferase 16 U/L (6-35); Albumin Level 3.6 g/dL (3.5-5.1); Alkaline Phosphatase 105 U/L (38-126); Anion Gap 5 mmol/L (8-16); Aspartate Amino Transferase 23 U/L (14-36); Bilirubin,Total 0.4 mg/dL (0.2-1.3); Blood Urea Nitrogen 6 mg/dL (7-17); Calcium 8.7 mg/dL (8.4-10.2); Carbon Dioxide 21 mmol/L (22-30); Chloride 106 mmol/L (98-107); Estimated Glomerular Filt Rate > 60; Glucose 101 mg/dL (65-110); Potassium 3.6 mmol/L (3.4-5.0); Sodium 132 mmol/L (137-145); Uric Acid 4.1 mg/dL (2.5-7.5)
[2023-05-17 18:09] LABS: Total Protein Urine Random 22 mg/dL
[2023-05-17 18:10] LABS: Total Protein Urine 24 Hr 308 mg/24hr (28-141); Total Volume 24 Hour Urine 1400 ml
== END 2023-05-17 15:36 | disposition home or self-care (01) ==
PROVIDERS: PCP Obstetrics & Gynecology Gynecology; Visit Provider Obstetrics & Gynecology Gynecology
DX: O10.013 Pre-existing essential hypertension complicating pregnancy, third trimester (principal); Z3A.00 Weeks of gestation of pregnancy not specified
CPT/HCPCS: 36415; 80053; 81050; 84156; 84550; 85025

== ENCOUNTER 2023-05-27 13:49 | Outpatient (CLI) | payer BC, MEDICAID, SELFPAY ==
[2023-05-27 14:32] LABS: Hematocrit 34.3 % (37.0-47.0); Hemoglobin 11.6 g/dL (12.0-15.0); Mean Corpuscular HGB Conc 33.8 g/dl (32-36); Mean Corpuscular Hemoglobin 31.3 pg (26-34); Mean Corpuscular Volume 92.5 fl (80-100); Mean Platelet Volume 10.7 fl (7.4-10.4); Platelet Count Result 189 k/mm3 (150-375); Red Blood Count 3.71 M/mm3 (4.2-5.4); Red Cell Distribution Width 13.6 % (11.5-14.5); White Blood Count 10.5 K/mm3 (4.5-10.0)
[2023-05-27 14:46] LABS: Alanine Aminotransferase 14 U/L (6-35); Albumin Level 3.5 g/dL (3.5-5.1); Alkaline Phosphatase 121 U/L (38-126); Anion Gap 4 mmol/L (8-16); Aspartate Amino Transferase 21 U/L (14-36); Bilirubin,Total 0.6 mg/dL (0.2-1.3); Blood Urea Nitrogen 8 mg/dL (7-17); Calcium 9.2 mg/dL (8.4-10.2); Carbon Dioxide 21 mmol/L (22-30); Chloride 106 mmol/L (98-107); Estimated Glomerular Filt Rate > 60; Glucose 96 mg/dL (65-110); Potassium 3.5 mmol/L (3.4-5.0); Sodium 131 mmol/L (137-145)
== END 2023-05-27 13:50 | disposition home or self-care (01) ==
PROVIDERS: PCP Obstetrics & Gynecology Gynecology; Visit Provider Advanced Practice Midwife
DX: O14.03 Mild to moderate pre-eclampsia, third trimester (principal); Z3A.00 Weeks of gestation of pregnancy not specified
CPT/HCPCS: 36415; 80053; 85027

== ENCOUNTER 2023-06-03 11:32 | Inpatient (IN) | payer BC, MEDICAID, SELFPAY ==
[2023-06-03] VITALS (29 sets, daily range): BP systolic 129–181; BP diastolic 69–111; PULSE 79–113; RESP 14; TEMP 36.2; BMI 36.3
[2023-06-03 12:14] LABS: Basophils Percent Auto 0.2 % (0.2-1.2); Eosinophils Absolute Auto 0.2 K/mm3 (0-0.3); Eosinophils Percent Auto 2.5 % (0-4.4); Hematocrit 32.6 % (37.0-47.0); Hemoglobin 10.9 g/dL (12.0-15.0); Immature Granulocyte Absolute 0.06 K/mm3 (0.00-0.031); Immature Granulocyte Percent A 0.6 % (0-0.5); Lymphocytes Percent Auto 14.8 % (18.3-44.2); Mean Corpuscular HGB Conc 33.4 g/dl (32-36); Mean Corpuscular Hemoglobin 31.1 pg (26-34); Mean Corpuscular Volume 92.9 fl (80-100); Mean Platelet Volume 10.6 fl (7.4-10.4); Monocytes Absolute Auto 0.6 K/mm3 (0.1-0.6); Monocytes Percent Auto 6.6 % (2.6-8.5); Neutrophils Absolute Auto 7.1 K/mm3 (1.3-6.7); Neutrophils Percent Auto 75.3 % (45.5-73.1); Platelet Count Result 173 k/mm3 (150-375); Red Blood Count 3.51 M/mm3 (4.2-5.4); Red Cell Distribution Width 13.6 % (11.5-14.5); White Blood Count 9.5 K/mm3 (4.5-10.0)
[2023-06-03 12:26] LABS: Appearance Urine Clear (Clear); Bacteria Urine None Seen /hpf; Bilirubin Urine Negative (Negative); Blood Urine Trace (Negative); Color Urine Yellow (Yellow); Glucose Urine UA Negative (Negative); Ketones Urine Negative (Negative); Leukocyte Esterase Ur 1+ LEU/UL (NEGATIVE); Nitrate Urine Negative (Negative); Non Pathogenic Casts 0-2; Protein Urine Negative (Negative); RBC Urine 0-2 /hpf (0-2); Specific Grav Ur 1.004 (1.001-1.035); Squamous Epithelial Cell Urine Few /hpf (Few); Urobilinogen Urine 0.2 mg/dL (<2.0)
[2023-06-03 12:30] LABS: Alanine Aminotransferase 18 U/L (6-35); Albumin Level 3.3 g/dL (3.5-5.1); Alkaline Phosphatase 122 U/L (38-126); Anion Gap 5 mmol/L (8-16); Aspartate Amino Transferase 24 U/L (14-36); Bilirubin,Total 0.5 mg/dL (0.2-1.3); Blood Urea Nitrogen 4 mg/dL (7-17); Calcium 8.2 mg/dL (8.4-10.2); Carbon Dioxide 19 mmol/L (22-30); Chloride 107 mmol/L (98-107); Estimated Glomerular Filt Rate > 60; Glucose 105 mg/dL (65-110); Potassium 3.6 mmol/L (3.4-5.0); Sodium 131 mmol/L (137-145); Uric Acid 4.9 mg/dL (2.5-7.5)
[2023-06-03 12:31] LABS: Creatinine Urine 24.2 mg/dL; Total Protein Urine Random 17 mg/dL
[2023-06-03 12:34] LABS: Add Urine Microscopic? YES
[2023-06-03] MEDS: LABETALOL HCL 100 MG TABLET 200 MG PO ×2 (12:36→20:33)
[2023-06-03] MEDS: NIFEdipine 10 MG CAPSULE PO ×2 (12:53→15:00)
--- NOTE | 2023-06-03 12:57 | PC.NURSE ---
1223: RN phoned Ari Castaneda CNM to inform her of multiple severe pressures. Orders to give Labetalol 200 mg PO and call back with lab results. 1244: RN phoned Ari Castaneda CNM to report lab results and severe pressures. Orders to give give Procardia 10 mg now. LINDSAYM stated she is going to call Dr. Benson to discuss further treatment plans.
[2023-06-03] MEDS: BETAMETHASONE SOD PHOS/ACETATE 30 MG/5 ML VIAL 12 MG IM (14:33)
--- NOTE | 2023-06-03 15:32 | PC.NURSE ---
1350: ALONDRA Castaneda phoned in. Order to admit patient for observation overnight. Verbal orders to continue patient's Procardia 60 mg XL at 0600 tomorrow, Labetalol 200 mg TID (with next dose being at 2100 tonight 06/03), NPH 16 units at bedtime with fasting blood sugars and postprandial blood sugars as well as a diabetic diet. CNM also ordered NST BID, BP Q2H while awake and BP Q4H while sleeping. CNM wants patient to have one dose of Celestone today and another dose of Celestone 24 hours later, CNM also ordered repeat lab in the AM. 1440: RN paged CNM 1452: CNM responded to page. RN informed CNM of 2 more severe blood pressures and patient complaints of contractions that went away. CNM does not want a SVE at this time, orders to give another 10 mg of Procardia PO, start an IV and saline lock it if patient has two more severe pressures (if patient allows) and perform a GBS swab. 1500: Patient states she had her GBS swab done at the office at 34 weeks. RN phoned office to check, office stated they will check and call us back. Patient states she is no longer feeling contractions
--- NOTE | 2023-06-03 15:59 | OBADM ---
This patient, Sherine Ruiz, admitted to the OB room OB Post 116 for observation. Patient/family oriented to hospital policies and general routines including ID bracelet, bed and alarms, visiting hours, pain management, procedures, bathroom and other care routines, personal items, smoking policy, room service/diet, and visiting hours. Patient/Family are encouraged to report perceived risks to care and to ask questions if they do not understand what they are told or what they should do.
--- NOTE | 2023-06-03 18:22 | PC.NURSE ---
1800: Report given to nurse Kalyani Thompson.
--- NOTE | 2023-06-03 18:58 | PC.NURSE ---
1837 PHONED Ari MIR CNM TO INFORM ABOUT 1 HOUR POST-PRANDIAL BLOOD SUGAR RESULTS 198. NO NEW ORDERS RECEIVED.
[2023-06-03] MEDS: INSULIN HUMAN NPH (*BKC) 100 UNITS/ML 16 UNITS SUB-Q (22:51)
[2023-06-04] VITALS (24 sets, daily range): BP systolic 144–172; BP diastolic 71–105; PULSE 81–107; RESP 16–17; TEMP 36.6–37; O2SAT 99–100; BMI 35.6
[2023-06-04] MEDS: LABETALOL HCL 100 MG TABLET 200 MG PO (05:30)
[2023-06-04] MEDS: NIFEdipine 30 MG TAB.ER.24 60 MG PO (05:40)
[2023-06-04 05:42] LABS: Basophils Percent Auto 0.1 % (0.2-1.2); Eosinophils Percent Auto 0.1 % (0-4.4); Hemoglobin 11.5 g/dL (12.0-15.0); Immature Granulocyte Absolute 0.06 K/mm3 (0.00-0.031); Immature Granulocyte Percent A 0.5 % (0-0.5); Lymphocytes Absolute Auto 1.03 K/mm3 (0.9-3.2); Mean Corpuscular HGB Conc 33.8 g/dl (32-36); Mean Corpuscular Hemoglobin 31.8 pg (26-34); Mean Corpuscular Volume 93.9 fl (80-100); Mean Platelet Volume 10.9 fl (7.4-10.4); Monocytes Absolute Auto 0.6 K/mm3 (0.1-0.6); Monocytes Percent Auto 5.3 % (2.6-8.5); Neutrophils Absolute Auto 9.7 K/mm3 (1.3-6.7); Platelet Count Result 186 k/mm3 (150-375); Red Blood Count 3.62 M/mm3 (4.2-5.4); Red Cell Distribution Width 13.3 % (11.5-14.5); White Blood Count 11.4 K/mm3 (4.5-10.0)
[2023-06-04 05:54] LABS: Alanine Aminotransferase 16 U/L (6-35); Albumin Level 3.3 g/dL (3.5-5.1); Alkaline Phosphatase 116 U/L (38-126); Anion Gap 5 mmol/L (8-16); Aspartate Amino Transferase 21 U/L (14-36); Bilirubin,Total 0.6 mg/dL (0.2-1.3); Blood Urea Nitrogen 7 mg/dL (7-17); Calcium 8.5 mg/dL (8.4-10.2); Carbon Dioxide 21 mmol/L (22-30); Chloride 105 mmol/L (98-107); Estimated CRCL calculation 112 ml/min; Estimated Glomerular Filt Rate > 60; Glucose 100 mg/dL (65-110); Potassium 4.2 mmol/L (3.4-5.0); Sodium 131 mmol/L (137-145); Uric Acid 4.6 mg/dL (2.5-7.5)
--- NOTE | 2023-06-04 07:52 | PC.NURSE ---
Dr Benson on unit, last two BP's reviewed with MD, new orders received.
[2023-06-04] MEDS: LABETALOL HCL 100 MG TABLET PO (07:57)
--- NOTE | 2023-06-04 08:26 | WPDOBADMIT ---
Obstetrics - Admit Note Admission Note: record reviewed. No pertinent additions to the history and/or any subsequent changes in the physical findings that are not consistent with the expected course of the were found. Additions to the history and/or subsequent changes in the physical findings follow. Admitted from office with worsening BP. Patient with CHTN and superimposed preeclampsia. FELIZ yesterday but no other complaints. Good FM. BP's lower throughout night but increasing this am systolics. NST Cat I abdomen soft, nt fundus soft, nt ext +1 edema a/p1. IUP 34 4/7 2. CHTN with superimposed pree-procarcdia XL 60 q am and Labetalol increased to 300 mg tid. Will keep admitted until delivery. 3. GDMA2-increase insulin to cover steroid affects. 4. Fetus-5#11oz on Tuesday level 2 u/s with normal CODI and dopplers. s/p 1st dose betamethasone and 2nd today 5. Grandmultip
[2023-06-04] MEDS: LABETALOL HCL 100 MG TABLET 300 MG PO ×2 (14:00→22:17)
[2023-06-04 14:10] LABS: Glucose Point of Care 122 mg/dl (65-105)
[2023-06-04] MEDS: BETAMETHASONE SOD PHOS/ACETATE 30 MG/5 ML VIAL 12 MG IM (15:00)
--- NOTE | 2023-06-04 17:14 | LDADM ---
This patient, Sherine Ruiz, was admitted to [facility] on 06/04/23 at 13:31. Plans for labor, pain management and were discussed with patient. Patient/family oriented to hospital policies and general routines including ID bracelet, bed and alarms, visiting hours, pain management, procedures, bathroom and other care routines, personal items, smoking policy, room service/diet and guest tray routines, infant security routines, and visiting hours. Patient/Family are encouraged to report perceived risks to care and to ask questions if they do not understand what they are told or what they should do. See OBIX for further documentation.
[2023-06-04 18:50] LABS: Glucose Point of Care 173 mg/dl (65-105)
[2023-06-04] MEDS: INSULIN HUMAN NPH (*BKC) 100 UNITS/ML 20 UNITS SUB-Q (22:15)
[2023-06-05] VITALS (23 sets, daily range): BP systolic 145–175; BP diastolic 73–93; PULSE 80–96; RESP 16–18; TEMP 36.7–36.8; O2SAT 97–99
[2023-06-05] MEDS: NIFEdipine 30 MG TAB.ER.24 60 MG PO (06:02)
[2023-06-05] MEDS: LABETALOL HCL 100 MG TABLET 300 MG PO ×2 (06:02→12:47)
--- NOTE | 2023-06-05 06:06 | PM.OBPNLAB ---
Pain Control Date/time seen: 06/05/23 06:00 Comments: Sleeping. Wakes to voice. Feeling well, able to rest overnight. Very slight headache behind bilateral eyes but states it is improving without meds. Denies visual changes, RUQ pain, increase in edema. Contractions Monitor mode: External Contraction pattern: Irregular Contraction intensity: Mild Status status: Category l Comments: NST 06/04/23 from [id number] with baseline 135, moderate variability, and accelerations present. Assessment and Plan Plan: continuous present management Comments: 1. 37 y.o. at 34 weeks 5 days. - Level 2 US 05/30/23. Fetus 5#11oz. CODI and dopplers WNL. 2. Superimposed preeclampsia - No sustained severe range BPs overnight. - Current med regimen Procardia XL 60mg and Labetalol 300mg TID - s/p celestone. 06/03/23 and 06/04/23 at 1430 - Dr. Benson plans delivery this week. 3. GDMA2 - NPH 20Units at HS. 5Units regular insulin PRN post parandial >175.
[2023-06-05 07:45] LABS: Glucose Point of Care 100 mg/dl (65-105)
[2023-06-05 09:58] LABS: Glucose Point of Care 131 mg/dl (65-105)
--- NOTE | 2023-06-05 10:09 | PC.NURSE ---
Bed linens changed, patient offers no c/o at this time. Patient is up and moving around independently. In good spirits.
--- NOTE | 2023-06-05 12:35 | PC.NURSE ---
Candida Castaneda notified of BP's during NST, will call back after discussing with Dr Benson.
--- NOTE | 2023-06-05 12:42 | PC.NURSE ---
Candida Castaneda called back with orders per Dr Benson, orders to increase Labetalol to 300 q 6 hours and repeat labs now.
--- NOTE | 2023-06-05 12:57 | PC.NURSE ---
Early dose of labetalol given and labs drawn as ordered.
[2023-06-05 13:04] LABS: Basophils Percent Auto 0.2 % (0.2-1.2); Eosinophils Percent Auto 0.2 % (0-4.4); Hematocrit 33.1 % (37.0-47.0); Hemoglobin 10.8 g/dL (12.0-15.0); Immature Granulocyte Absolute 0.17 K/mm3 (0.00-0.031); Immature Granulocyte Percent A 1.3 % (0-0.5); Lymphocytes Absolute Auto 1.47 K/mm3 (0.9-3.2); Lymphocytes Percent Auto 11.1 % (18.3-44.2); Mean Corpuscular HGB Conc 32.6 g/dl (32-36); Mean Corpuscular Volume 95.1 fl (80-100); Mean Platelet Volume 10.9 fl (7.4-10.4); Monocytes Absolute Auto 1.2 K/mm3 (0.1-0.6); Monocytes Percent Auto 9.1 % (2.6-8.5); Neutrophils Absolute Auto 10.4 K/mm3 (1.3-6.7); Neutrophils Percent Auto 78.1 % (45.5-73.1); Platelet Count Result 224 k/mm3 (150-375); Red Blood Count 3.48 M/mm3 (4.2-5.4); Red Cell Distribution Width 13.7 % (11.5-14.5); White Blood Count 13.2 K/mm3 (4.5-10.0)
[2023-06-05 13:13] LABS: Alanine Aminotransferase 23 U/L (6-35); Albumin Level 3.7 g/dL (3.5-5.1); Alkaline Phosphatase 119 U/L (38-126); Anion Gap 4 mmol/L (8-16); Aspartate Amino Transferase 30 U/L (14-36); Bilirubin,Total 0.7 mg/dL (0.2-1.3); Blood Urea Nitrogen 12 mg/dL (7-17); Calcium 8.7 mg/dL (8.4-10.2); Carbon Dioxide 26 mmol/L (22-30); Chloride 104 mmol/L (98-107); Estimated CRCL calculation 111 ml/min; Estimated Glomerular Filt Rate > 60; Glucose 94 mg/dL (65-110); Potassium 4.1 mmol/L (3.4-5.0); Sodium 134 mmol/L (137-145); Uric Acid 4.4 mg/dL (2.5-7.5)
--- NOTE | 2023-06-05 13:18 | PM.OBPNLAB ---
Contractions Monitor mode: External Contraction frequency: 11 Contraction pattern: Irregular Contraction intensity: Mild Status status: Category l Assessment and Plan Comments: Called by RN for severe range BPs. Consulted Dr. Benson. requests new CBC, CMP, Uric acid and for Labetalol to be changed to 300mg q 6 hours. Orders then called to [facility].
--- NOTE | 2023-06-05 13:36 | PC.NURSE ---
Candida Castaneda called patient to discuss possible transfer to advance level care. Patient is agreeable. Awaiting consult from from [facility]
--- NOTE | 2023-06-05 13:56 | P.PNOB_ITS ---
Contractions Monitor mode: External Contraction frequency: 11 Contraction pattern: Irregular Contraction intensity: Mild Status status: Category l Assessment and Plan Comments: Dr. Benson updated on pt's new c/o FELIZ. recommends transfer to [facility]. Called unit and discussed plan of care with patient. Discussed risks and benefits of transfer as well as rationale. Pt verbalized understanding and is aggreable. Call placed to [facility] consult line. Spoke with Dr. Mark about pt history and current findings of Superimposed preeclampsia with severe features. agrees with and accepts pt for transfer to L&D unit at [facility]. [facility] transport team to travel to [facility] and transport pt. Dr. Mark requests that Magnesium Sulfate be started. Called [facility] and communicated plan of care. Orders for Magnesium Sulfate 4gram bolus/2 gram maintenance given.
--- NOTE | 2023-06-05 14:01 | PC.NURSE ---
Report given to [facility]. Accepting Transfer.
[2023-06-05 14:13] LABS: Glucose Point of Care 112 mg/dl (65-105)
[2023-06-05] MEDS: LACTATED RINGERS 1,000 ML 75 ML IV CONT (14:40)
[2023-06-05] MEDS: MAGNESIUM SULF 4 GM/WATER100ML 4 GM/100 ML BAG IVPB (14:42)
--- NOTE | 2023-06-05 15:00 | PC.NURSE ---
Transport from [facility]. BP and Tracing reviewed.
[2023-06-05] MEDS: LABETALOL HCL INJ 100 MG/20 ML VIAL 20 MG IV PUSH (15:04)
[2023-06-05] MEDS: MAGNESIUM SULF 20GM/WATER500ML 500 ML 50 MG IV CONT (15:10)
--- NOTE | 2023-06-15 11:32 | PM.TDS ---
Transfer Discharge Sum: Prov Provider Date of admission: 06/04/23 13:31 Primary care physician: Armida Castaneda CNM Admitting clinician: Yessi Benson MD Attending physician on admission: Yessi Benson Anticipated date of transfer: 06/04/23 Receiving physician/facility: [facility] DS: Admitting Diagnosis Discharge Date 06/05/23 Admitting Diagnosis 37 y.o. at 34 weeks gestation CHTN with Preeclampsia GDMA2 Anxiety and Depression AMA Grand multip DS: Discharge Diagnosis Discharge Diagnosis (1) Severe preeclampsia: Code(s): O14.10 - Severe pre-eclampsia, unspecified trimester Status: Acute (2) GDM (gestational diabetes mellitus): Code(s): O24.419 - Gestational diabetes mellitus in , unspecified control Status: Acute Transfer Discharge Sum: Med Medications Active and Home Medications: Home Medications nifedipine 30 mg tablet,extended release 24 hr (Procardia XL) 60 mg PO DAILY 01/21/22 [History Confirmed 06/03/23] labetalol 200 mg tablet 200 mg PO Q8H 06/03/23 [History Confirmed 06/03/23] Transfer Discharge Sum: Hosp Hospital Course Hospital course: Pt with known Superimposed Preeclmapsia now severe by BP and FELIZ. Has recently been up titrated on home BP meds. s/p Celestone for lung maturity. Given evidence of worsening preeclampsia and early gestational age, collaborated with Dr. Benson and decision made to transfer pt for higher level of care. Time Spent with Patient Time attestation: Total time spent providing and/or coordinating transfer services: Exam Narrative: see OB progress note
== END 2023-06-05 15:18 | disposition short-term general hospital (02) | DRG 831 ==
PROVIDERS: Admitting Provider Obstetrics & Gynecology Gynecology; PCP Advanced Practice Midwife; Visit Provider Obstetrics & Gynecology Gynecology
DX: O24.414 Gestational diabetes mellitus in pregnancy, insulin controlled (principal); O11.3 Pre-existing hypertension with pre-eclampsia, third trimester; O10.913 Unspecified pre-existing hypertension complicating pregnancy, third trimester; Z3A.34 34 weeks gestation of pregnancy
CPT/HCPCS: 36415; 59025; 80053; 81001; 82570; 82948; 84156; 84550; 85025; 87086; 87088; 96372; A9270; G0378; G0379; J0702; J1815; J3475; J7120

== ENCOUNTER 2023-10-27 10:04 | Outpatient (CLI) | payer BC, MEDICAID, SELFPAY | END 2023-10-27 10:05 | disposition home or self-care (01) | LOC: ANHLAB 10:06 | PROVIDERS: PCP Advanced Practice Midwife; Visit Provider Obstetrics & Gynecology Gynecology | DX: O09.299 Supervision of pregnancy with other poor reproductive or obstetric history, unspecified trimester (principal); Z3A.00 Weeks of gestation of pregnancy not specified | CPT/HCPCS: 36415; 84702 ==

== ENCOUNTER → 2023-11-01 11:41 | Outpatient (CLI) | payer BC, MEDICAID, SELFPAY ==
--- NOTE | ~2023-11-01 | US_ITS ---
EXAMINATION: US OB transvaginal DATE: 11/01/2023 12:04 INDICATION: Uncertain dates. TECHNIQUE: Real-time transvaginal pelvic ultrasound was performed. COMPARISON: None. FINDINGS: The uterus measures 11.8 x 6.7 x 6.9 cm. There is a cyst in the endometrial complex with mean diamete r of 8 mm that may be a gestational sac. No definitive yolk sac or pole is identified. The righ t ovary measures 2.2 x 2.6 x 3.3 cm. The left ovary measures 2.2 x 1.2 x 2.2 cm. There is no free flu id in the pelvis. IMPRESSION: 1. 8 mm cyst in the endometrial complex which is indeterminate for a gestational sac. Spontaneous ab ortion and ectopic are not excluded. Serial beta hCGs are recommended. Reviewed, dictated and finalized at location E. ICES TECH IMPRESSION: 1. 8 mm cyst in the endometrial complex which is indeterminate for a gestation al sac. Spontaneous and ectopic are not excluded. Serial bet a hCGs are recommended.
== END ==
PROVIDERS: PCP Obstetrics & Gynecology Gynecology; Visit Provider Obstetrics & Gynecology Gynecology
DX: Z36.87 Encounter for antenatal screening for uncertain dates (principal); Z3A.00 Weeks of gestation of pregnancy not specified
CPT/HCPCS: 76817

== ENCOUNTER 2023-11-02 17:42 | Outpatient (CLI) | payer BC, MEDICAID, SELFPAY | END 2023-11-02 17:43 | disposition home or self-care (01) | LOC: ANHLAB 17:46 | PROVIDERS: PCP Obstetrics & Gynecology Gynecology; Visit Provider Obstetrics & Gynecology Gynecology | DX: O36.80X0 Pregnancy with inconclusive fetal viability, not applicable or unspecified (principal); Z3A.00 Weeks of gestation of pregnancy not specified | CPT/HCPCS: 36415; 84702 ==

== ENCOUNTER 2023-11-09 08:07 | Outpatient (CLI) | payer BC, MEDICAID, SELFPAY ==
--- NOTE | ~2023-11-09 | US_ITS ---
CORRECTED REPORT corrected order [facility] 11/10/23 This report was recreated on 11/10/23. Original report was IFIED PROFESSIONAL CODER Pelvic ultrasound. Clinical History: First trimester , establish dates and viability Technique: Realtime transabdominal and transvaginal scanning of the pelvis was performed. Color flow Doppler and Doppler spectral analysis were performed. Findings: The uterus is anteverted. Intrauterine gestational sac is present, probable yolk sac but no visible pole at this time. Average sac diameter of 1.3 cm corresponds to an estimated gestational age of 6 weeks 1 day. Yolk sac is somewhat large in appearance as compared to typical.. The right ovary measures 2.9 x 2.3 x 1.9 cm. No significant right ovarian or adnexal mass is seen. The left ovary is not visualized. No significant left ovarian or adnexal mass is seen. There is no evidence of free fluid in the cul de sac. Impression: Intrauterine gestational sac with estimated gestational age of 6 weeks 1 day by average sac diameter. No pole. Possible large yolk sac and possible minimal debris. Appearance suggests blighted ovum or otherwise nonviable /missed , however early normal is not completely excluded. Correlation with serial beta hCG advised. Follow-up ultrasound can be performed as warranted. Reviewed, dictated and finalized at location . IFIED PROFESSIONAL CODER MTDD Impression: Intrauterine gestational sac with estimated gestational age of 6 weeks 1 day by average sac diameter. No pole. Possible large yolk sac and possible mini mal debris. Appearance suggests blighted ovum or otherwise nonviable / missed , however early normal is not completely excluded. Cor relation with serial beta hCG advised. Follow-up ultrasound can be performed as warranted.
== END 2023-11-09 08:08 | disposition home or self-care (01) ==
PROVIDERS: PCP Obstetrics & Gynecology Gynecology; Visit Provider Obstetrics & Gynecology Gynecology
DX: Z36.87 Encounter for antenatal screening for uncertain dates (principal); Z3A.00 Weeks of gestation of pregnancy not specified
CPT/HCPCS: 76801; 76817

== ENCOUNTER 2023-11-11 16:14 | Outpatient (RCR) | payer BC, MEDICAID, SELFPAY ==
[2023-10-21 11:45] LABS: Beta HCG Quantitative 159.69 mIU/ML
== END 2024-01-19 23:59 | disposition home or self-care (01) ==
LOC: ANHLAB 16:14
PROVIDERS: PCP Advanced Practice Midwife; Visit Provider Obstetrics & Gynecology Gynecology
DX: O09.299 Supervision of pregnancy with other poor reproductive or obstetric history, unspecified trimester (principal); Z3A.00 Weeks of gestation of pregnancy not specified
CPT/HCPCS: 36415; 84702

== ENCOUNTER → 2023-11-16 13:11 | Outpatient (CLI) | payer BC, MEDICAID, SELFPAY ==
--- NOTE | ~2023-11-16 | US_ITS ---
EXAMINATION: US OB <= 14 weeks fetus DATE: 11/16/2023 13:42 INDICATION: Threatened . TECHNIQUE: Real-time transabdominal and transvaginal pelvic ultrasound was performed. COMPARISON: Ultrasound 11/09/2023 FINDINGS: TRANSABDOMINAL ULTRASOUND: The uterus measures 10.6 x 7.0 x 7.3 cm. TRANSVAGINAL ULTRASOUND: There is an intrauterine gestational sac. A yolk sac is identified. The fet al crown rump length measures 8 mm, which correlates with an estimated gestational age of 6 weeks and 5 day(s) (+/-) 4 day(s). heart motion is identified measuring 128 beats per minute (bpm) by M -mode Doppler. There is a 5 mm cyst in the endometrial complex. The right ovary measures 3.5 x 2.8 x 2.8 cm. The left ovary measures 3.3 x 1.5 x 2.2 cm. There is no free fluid in the pelvis. IMPRESSION: 1. Single living intrauterine gestation with estimated date of delivery of 07/06/2024. Reviewed, dictated and finalized at location E. IFIED PROFESSIONAL CONTROLLER IMPRESSION: 1. Single living intrauterine gestation with estimated date of delivery of 06/11.
== END ==
PROVIDERS: PCP Obstetrics & Gynecology Gynecology; Visit Provider Obstetrics & Gynecology Gynecology
DX: O20.0 Threatened abortion (principal); Z3A.00 Weeks of gestation of pregnancy not specified
CPT/HCPCS: 76801

== ENCOUNTER → 2023-11-28 12:47 | Outpatient (CLI) | payer BC, MEDICAID, SELFPAY ==
--- NOTE | ~2023-11-28 | US_ITS ---
EXAMINATION: US OB <= 14 weeks fetus DATE: 11/28/2023 13:02 INDICATION: Recurrent loss TECHNIQUE: Real-time pelvic transabdominal and transvaginal ultrasound was performed. COMPARISON: 11/16/2023 FINDINGS: The uterus measures 11.3 x 6.6 x 6.9 cm. There is an intrauterine gestational sac. A yolk s ac is identified. The crown rump length measures 9 mm, which correlates with an estimated gesta tional age of 7 weeks and 0 day(s) (+/-) 4 day(s). No cardiac motion is identified. The left ovary is not visualized however no left adnexal abnormality is seen. The right ovary measure s 3.7 x 2.5 x 3.4 cm. There is normal vascular flow in the right ovary. There is no free fluid in the pelvis. IMPRESSION: 1. demise. Reviewed, dictated and finalized at location B. [employer] IMPRESSION: 1. demise.
== END ==
PROVIDERS: PCP Obstetrics & Gynecology Gynecology; Visit Provider Obstetrics & Gynecology Gynecology
DX: N96 Recurrent pregnancy loss (principal); O02.1 Missed abortion
CPT/HCPCS: 76801

== ENCOUNTER 2023-12-02 03:02 | Day surgery (SDC) | payer BC, MEDICAID, SELFPAY ==
[2023-11-28 15:02] VITALS: BMI 31.0
--- NOTE | 2023-11-28 15:05 | PC.NURSE ---
Report to the Outpatient Waiting Room, entrance under the green pavilion located off [facility], at time 0630 on date 12/02/23. Planned Procedure Time: 0830. Time changes happen often and if your time is changed the preop area will call you the afternoon before. - You and your visitor will be asked to self-screen and do not enter if you have any COVID symptoms. - A mask is optional within the hospital at this time. Patients may have clear liquids (water, carbonated beverages, clear teas, apple juice) until 3 hours prior to surgery with a maximum of 20 ounces. - No food from midnight until time of surgery Take the following medications with a SIP of water the morning of surgery: PROCARDIA DO NOT STOP ANY OF YOUR OTHER PRESCRIPTION MEDICATIONS PRIOR TO SURGERY ?EXCEPT THE FOLLOWING Medications to discontinue per physician: N/A Date to take last dose: N/A Please no make-up, nail faroese, hairspray, perfume, deodorant, or body powder the day of surgery. No jewelry (including any body piercings) or valuables the day of surgery, leave them at home. Please take a shower or bath the night before, or the morning of, surgery with an antibacterial soap. Wear comfortable, loose fitting clothing. - Jewelry must be removed prior to entering the operating room. Rings and piercings that are not removed may be cut off. - The hospital will not accept responsibility for valuables. - Please leave all valuables, including medications, at home the day of surgery. If you are going home after surgery, a licensed regional company truck driver must drive you home. - NO public transportation without another adult if you receive anesthesia. - We recommend that an adult stay with you for 24 hours following discharge. - We also recommend that you do not drive, make important decision, drink alcoholic beverages, or take any drugs that were not prescribed by your health care provider for at least 24 hours after your discharge time. Follow any additional instructions given to you from your surgeon. If you or anyone in your household have experienced Covid symptoms in the past week, please notify your surgeon or the nurse liaison at the phone number below for possible testing. Telephone instructions given to PT - MELVIN MUÑOZ and asked if any additional questions and then verbalized understanding. Patient advised to call surgeon office or pre surgery nurse liaison [phone] if any additional questions.
[2023-12-02 06:40] VITALS: BP 143/81; PULSE 83; RESP 18; TEMP 36.5; O2SAT 100
--- NOTE | 2023-12-02 07:17 | WPDHPUPDATE1 ---
History and Physical Update Update Date/Time: 12/02/23 07:17 History and Physical has been reviewed, including an updated exam of the patient. There are NO changes in the patient's condition. Risks, benefits, and alternatives have been discussed and questions answered. Patient agrees to proceed with procedure.
--- NOTE | 2023-12-02 07:17 | PM.HPGS ---
History of Present Illness History of Present Illness Consent: Risks, benefits, and alternatives have been discussed and questions answered. Patient agrees to proceed with procedure. Chief complaint: Missed Ab Narrative: Sherine Ruiz is a 38 year old female with a 7 week missed . Patient initially had a slow rise of her HCG but at 6 weeks 5 days had positive heart tones. Repeat ultrasound 1 week later had no heart tones. Patient has had no vaginal bleeding. Options for management of miscarriage were discussed and the patient requests D&C to proceed. Risks of infection, bleeding, and perforation are discussed. Patient voices understanding and agrees to proceed. 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 Resolved now History of depression (normal spontaneous vaginal delivery) x9 preeclampsia or gestational hypertension in all pregnancies Family History Family History Mother Patient's mother is in good health Sibling Patient's brother is in good health Father Family history of premature coronary heart disease, Onset Age: 50 Patient's father is Grandparent Family history of malignant neoplasm of breast, Onset Age: 50 Social History Social History Smoking status: Never smoker Second hand tobacco smoke exposure: No Alcohol intake: never Substance use: never Substance use type: does not use Lack of Transportation: No Lack of Food: Never True Current Housing: I Have Housing Concerned About Future Housing: No Difficulty Paying Gas/Electric Bills: No Difficulty Paying for Meds: No Currently Unemployed: No Education: High School Diploma/GED Difficulty w/ Childcare or Family Care: No Living arrangements: with family Spiritual care concerns: No Meds Home Medications and Allergies Home Medications Medication Instructions Recorded Confirmed Type nifedipine 30 mg tablet,extended 30 mg PO DAILY 01/21/22 12/02/23 History release 24 hr (Procardia XL) Allergies Allergy/AdvReac Type Severity Reaction Status Date / Time morphine Allergy Intermediate Hives Verified 12/02/23 07:02 erythromycin base AdvReac Mild Rash Verified 12/02/23 07:02 Macrolide Antibiotics AdvReac Mild Rash Verified 12/02/23 07:02 Penicillins AdvReac Mild Rash Verified 12/02/23 07:02 codeine AdvReac Unknown STOMACH Verified 12/02/23 07:02 ISSUES Exam Const: General: healthy appearing and alert Orientation/consciousness: patient oriented x3 Resp: Effort & Inspection: normal respiratory effort GI: GI Palp: Yes Soft to palpation, No Tenderness to palpation present (GI) and No Palpable mass present : External Female Exam: normal external appearance Speculum Exam - Vagina: normal appearance of the vagina and normal vaginal discharge Speculum Exam - Cervix: normal appearance of the cervix Bimanual exam- vagina & uterus: uterine size normal and consistency normal Bimanual Exam- Adnexa, other: normal adnexae and No adnexal tenderness Neuro: General: patient oriented x3 Assessment and Plan Assessment and plan (1) Missed : Code(s): O02.1 - Missed Status: Acute Assessment and Plan: Plan to proceed with suction D&C
[2023-12-02] MEDS: ACETAMINOPHEN 500 MG TABLET 1000 MG PO (07:24)
[2023-12-02] MEDS: LACTATED RINGERS 1,000 ML 30 ML IV CONT (07:25)
--- NOTE | 2023-12-02 08:17 | WPDANESEPPF ---
Anes - Initial Pre Proc Eval Procedure: Operation Date: 12/02/23 08:30 Proposed Procedures p Suction Dilation and Curettage - Yessi Benson MD Date/Time: 12/02/23 08:17 Surgeon: Yessi Benson MD Pre Op Diagnosis: Missed Ab Patient Data Age: 38 Gender: F Height: 1.6 m Weight: 80.6 kg Last Vital Signs Temp 97.7 F 12/02/23 06:40 Pulse 83 12/02/23 06:40 Resp 18 12/02/23 06:40 BP 143/81 H 12/02/23 06:40 Pulse Ox 100 12/02/23 06:40 O2 Del Method Room Air 12/02/23 06:40 Allergies Allergy/AdvReac Type Severity Reaction Status Date / Time morphine Allergy Intermediate Hives Verified 12/02/23 07:02 erythromycin base AdvReac Mild Rash Verified 12/02/23 07:02 Macrolide Antibiotics AdvReac Mild Rash Verified 12/02/23 07:02 Penicillins AdvReac Mild Rash Verified 12/02/23 07:02 codeine AdvReac Unknown STOMACH Verified 12/02/23 07:02 ISSUES Home Medications Medication Instructions Recorded Confirmed Type nifedipine 30 mg tablet,extended 30 mg PO DAILY 01/21/22 12/02/23 History release 24 hr (Procardia XL) Laboratory Tests 12/02/23 07:22 Blood Type O Negative Antibody Screen Pending Doses of RhIg Required 1 Patient hx anesthesia problems: none Family hx anesthesia problems: none Results Review: All pre-operative results and documents have been reviewed as part of the pre-operative evaluation. 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 Resolved now History of depression (normal spontaneous vaginal delivery) x9 preeclampsia or gestational hypertension in all pregnancies Family History Family History Mother Patient's mother is in good health Sibling Patient's brother is in good health Father Family history of premature coronary heart disease, Onset Age: 50 Patient's father is Grandparent Family history of malignant neoplasm of breast, Onset Age: 50 Social History Social History Smoking status: Never smoker Second hand tobacco smoke exposure: No Alcohol intake: never Substance use: never Substance use type: does not use Lack of Transportation: No Lack of Food: Never True Current Housing: I Have Housing Concerned About Future Housing: No Difficulty Paying Gas/Electric Bills: No Difficulty Paying for Meds: No Currently Unemployed: No Education: High School Diploma/GED Difficulty w/ Childcare or Family Care: No Living arrangements: with family Spiritual care concerns: No Anes - Eval Final PreProcedure Day of Procedure 12/02/23 08:17 Patient weight: obese Heart: regular rate and rhythm Lungs: clear to auscultation Airway: Mallampati scale class II Neurological: alert and oriented Last oral intake: >/= 8 hours ASA classification: II Emergent: no Anesthetic plan: proceed Anesthesia type and monitoring: general GIVS and standard monitoring Results Review: All pre-operative results and documents have been reviewed as part of the pre-operative evaluation. Informed Consent: The patient's anesthetic plan and its attendant risks and benefits were discussed with the patient/family/POA. Questions were solicited and answers provided to the satisfaction of the patient/family/POA.
[2023-12-02] MEDS: KETOROLAC 30 MG/ML VIAL (*BKC) IV PUSH (08:44)
[2023-12-02 08:55] VITALS: BP 160/81; PULSE 82; RESP 16; O2SAT 98
--- NOTE | 2023-12-02 08:58 | W.PM.PROC2 ---
Procedure Note - Detailed Date of Procedure 12/02/23 Pre-op Diagnosis Missed Ab Post-op Diagnosis Same Procedure Performed Suction D&C Surgeon Yessi Benson MD Anesthesia MAC Findings uterus sounds to 9cm with moderate products of conception Description of Procedure The patient was taken to the operating room and placed under anesthesia in the dorsal lithotomy position. She was prepped and draped in the usual sterile fashion. [place] speculum was placed in the vagina and the cervix grasped on the anterior lip with a tenaculum. The uterus is sounded to 9cm. The cervix is serially dilated to an 8 [place]. The 8 curved suction curette is used to evacuate the uterus until no further products of conception are noted in the tubing. The sharp curette was then used to curette the endometrium until a good uterine cry was noted in all areas. One additional pass with the suction curette is taken. All instruments were then removed. The patient was awakened from anesthesia and taken to recovery in stable condition. Estimated Blood Loss 25 Packing No Pathology Yes ( Products of conception) Complications No immediate complications Condition Stable Disposition PACU
[2023-12-02 09:25] VITALS: BP 160/60; PULSE 69
[2023-12-02] MEDS: RHO(D) IMMUNE GLOBULIN 300 MCG/2 ML SYRINGE IM (09:53)
[2023-12-02 09:55] VITALS: BP 142/75; PULSE 63
== END 2023-12-02 10:10 | disposition home or self-care (01) ==
PROVIDERS: PCP Family Medicine; Visit Provider Obstetrics & Gynecology Gynecology
PROC: (CPT 59820; principal; 2023-12-02 08:30)
DX: O02.1 Missed abortion (principal)
CPT/HCPCS: 59820; 36415; 85461; 86850; 86900; 86901; 88305; 90384; A9270; J1885; J2250; J2704; J2790; J3010; J7120

== ENCOUNTER 2024-05-18 08:18 | Outpatient (CLI) | payer BC, SELFPAY ==
[2024-05-18 08:51] LABS: Basophils Absolute Auto 0.1 K/mm3 (0.0-0.1); Eosinophils Absolute Auto 0.3 K/mm3 (0-0.3); Eosinophils Percent Auto 4.3 % (0-4.4); Hematocrit 44.8 % (37.0-47.0); Hemoglobin 14.6 g/dL (12.0-15.0); Immature Granulocyte Absolute 0.02 K/mm3 (0.00-0.031); Immature Granulocyte Percent A 0.3 % (0-0.5); Lymphocytes Absolute Auto 1.84 K/mm3 (0.9-3.2); Lymphocytes Percent Auto 25.5 % (18.3-44.2); Mean Corpuscular HGB Conc 32.6 g/dl (32-36); Mean Corpuscular Hemoglobin 30.2 pg (26-34); Mean Corpuscular Volume 92.6 fl (80-100); Mean Platelet Volume 9.8 fl (7.4-10.4); Monocytes Absolute Auto 0.6 K/mm3 (0.1-0.6); Monocytes Percent Auto 7.6 % (2.6-8.5); Neutrophils Absolute Auto 4.4 K/mm3 (1.3-6.7); Neutrophils Percent Auto 61.3 % (45.5-73.1); Platelet Count Result 275 k/mm3 (150-375); Red Blood Count 4.84 M/mm3 (4.2-5.4); Red Cell Distribution Width 12.7 % (11.5-14.5); White Blood Count 7.2 K/mm3 (4.5-10.0)
[2024-05-18 09:18] LABS: Alanine Aminotransferase 17 U/L (6-35); Albumin Level 4.7 g/dL (3.5-5.1); Alkaline Phosphatase 77 U/L (38-126); Anion Gap 10 mmol/L (4-12); Aspartate Amino Transferase 21 U/L (14-36); Bilirubin,Total 0.6 mg/dL (0.2-1.3); Blood Urea Nitrogen 18 mg/dL (7-17); Calcium 9.4 mg/dL (8.4-10.2); Carbon Dioxide 26 mmol/L (22-30); Chloride 103 mmol/L (98-107); Cholesterol 168 mg/dL (0-200); Estimated Glomerular Filt Rate > 60; Glucose 96 mg/dL (65-110); HDL Direct 53 mg/dL; Potassium 4.7 mmol/L (3.4-5.0); Sodium 139 mmol/L (137-145); Triglycerides 111 mg/dL (<150)
[2024-05-18 09:30] LABS: LDL Cholesterol Direct 87 mg/dL
[2024-05-18 09:54] LABS: Thyroid Stimulating Hormone 0.137 uIU/mL (0.465-4.680)
[2024-05-18 20:14] LABS: Hemoglobin A1C 5.2 % (<5.7)
== END 2024-05-18 08:19 | disposition home or self-care (01) ==
LOC: ANHLAB 08:19
PROVIDERS: PCP Family Medicine; Visit Provider Family Medicine
DX: O14.10 Severe pre-eclampsia, unspecified trimester (principal); O24.419 Gestational diabetes mellitus in pregnancy, unspecified control; Z3A.00 Weeks of gestation of pregnancy not specified
CPT/HCPCS: 36415; 80053; 80061; 83036; 84443; 85025